=== PATIENT | male | born 1995 | race Caucasian/White ===

== ENCOUNTER 2020-09-30 20:54 | Emergency (ER) | payer OTHER, SELFPAY ==
[2020-09-30 20:55] VITALS: BP 154/79; PULSE 79; RESP 16; TEMP 37.1; O2SAT 99; BMI 34.0
--- NOTE | 2020-09-30 21:54 | XR_ITS ---
EXAMINATION: XR CHEST CLINICAL INFORMATION: Difficulty breathing COMPARISON: None TECHNIQUE: 2 views of the chest were obtained. FINDINGS: Low lung volumes but no focal consolidation or mass. Normal pulmonary vascularity. No pleural effusion or pneumothorax. Normal heart size. Regional skeleton intact. XR/XR chest 2V IMPRESSION: Low lung volumes but no acute pulmonary disease.
--- NOTE | 2020-09-30 21:57 | ED.GENADULT ---
HPI - General Adult General Chief complaint: General Medical Stated complaint: sob Time Seen by Provider: 09/30/20 21:52 Source: patient Mode of arrival: ambulatory Limitations: no limitations History of Present Illness HPI narrative: This is a 24-year-old male came in with multiple complaints. 1. Night sweat for the past 2 years not associated with fever or chills. 2. , breathe from his nose only able to breathe from the mouth. 3. Patient obtained health insurance recently and has not seen PCP patient was supposed to get circumcision and is seeking to get it done. Related Data Allergies Allergy/AdvReac Type Severity Reaction Status Date / Time amoxicillin Allergy Mild Rash Verified 09/30/20 21:54 Review of Systems Review of Systems: All other systems are reviewed and are negative Constitutional: Reports as per HPI and Reports no additional constitutional complaints Eyes: Reports as per HPI and Reports no additional eye complaints Reports system reviewed and no additional complaints, except as documented Cardiovascular: Reports as per HPI and Reports no additional cardiovascular complaints Respiratory: Reports as per HPI and Reports no additional respiratory complaints Gastrointestinal: Reports as per HPI and Reports no additional gastrointestinal complaints Genitourinary: Reports no additional female genitourinary complaints Musculoskeletal: Reports no additional musculoskeletal complaints Skin/Breast: Reports system reviewed and no additional complaints, except as docu Psychiatric: Reports no additional psychiatric complaints Endocrine: Reports no additional endocrine complaints Hematologic/Lymphatic: Reports no additional hematologic/lymphatic complaints Allergic/Immunologic: Reports no additional allergic/immunologic complaints Reports system reviewed and no additional complaints, except as documented and Reports Abnormal speech present [facility] Past Medical History Surgical History H/O adenoidectomy Social History Social History Advance Directives: No Advance Directives Information Provided: No Physical Exam Vital Signs: Vital Signs: Last Vital Signs Temp 98.8 F 09/30/20 20:55 Pulse 56 10/01/20 00:55 Resp 16 10/01/20 00:55 BP 151/77 H 10/01/20 00:55 Pulse Ox 100 10/01/20 00:55 Body Mass Index 34.0 Vital signs have been reviewed as normal and appeared to be correct. Blood pressure on the high side. Heart rate normal. Respiration rate normal. Temperature normal. Oxygen saturation normal. Appearance: Alert. Oriented X3. No acute distress. Head: Normal external exam. Normocephalic. Atraumatic. No Vidales signs noted. No raccoon eyes noted Eyes: PERRLA. EOMI. Conjunctiva and sclera normal. Eyelids normal. ENT: EAC normal. TM's Normal. Pharynx normal. Uvula midline. Moist mucous membranes. No trismus noted. No drooling noted. No muffled voice noted. Neck: Normal inspection. Neck supple. FROM. No adenopathy. Thyroid Normal. No meningeal signs. No neck mass noted. CVS: Normal heart rate and rhythm. Heart sound normal. No murmurs noted. Pulses normal throughout. Respiratory: No respiratory distress. Painless inspiration. Breath sounds normal. No wheezes/rales/rhonchi noted. Chest nontender. No accessory muscle usage noted or decreased air movement noted. Abdomen: Obese, Soft and nontender. Bowel sounds normal in all 4 quadrants. No distention noted. No organomegaly noted. No visible injury noted. Back: No CVA tenderness. Full range of motion noted. Skin: Skin warm and dry. Normal skin color. Normal skin turgor. No rashes/lesions/lacerations noted. Extremities: No lower extremity edema. Extremities exhibit normal range of motion. Extremities nontender. Neuro: Oriented X 3. No motor deficit. No sensory deficit. Reflexes normal. Course Course Course Narrative: Assessment and plan. This is a 24-year-old male came in with multiple complaints. Patient just had his health insurance in the process of looking for PCP. 1. Blood pressure on the high range in the emergency department, need further monitoring of his blood pressure and PCP management of the blood pressure. I discussed with the patient at lengthy the importance of starting exercising and lose weight program. 2. No abdominal pain or abdominal tenderness, elevated lipase, patient do not drink alcohol, unremarkable LFTs. Patient was instructed to drink plenty of fluid and avoid greasy fatty food, patient also was advised to start exercising and lose weight. 3. Patient been complaining of difficulty breathing appear to be due to low exercise tolerance of the patient and body habitus related, patient has unremarkable labs and chest x-ray with normal. Medical Decision Making Lab Data Result diagrams: 09/30/20 22:49 09/30/20 22:49 Labs: Lab Results 09/30/20 09/30/20 09/30/20 Range/Units 22:49 22:49 23:03 WBC 8.9 (4.8-10.8) X10*3/uL RBC 4.93 (4.60-5.80) X10*6/uL Hgb 14.8 (14.0-18.0) g/dl Hct 43.7 (42-52) % MCV 88.6 (80-98) fL MCH 30.0 (27.0-33.0) pg MCHC 33.9 (31.0-36.0) g/dl RDW 11.8 (11.0-16.0) % Plt Count 325 (160-400) X10*3/uL MPV 9.9 (9.4-12.4) fL Immature Gran % (Auto) 0.2 (0.0-0.4) % Neut % (Auto) 64.3 (45-73) % Lymph % (Auto) 24.7 (20-40) % [place] % (Auto) 9.6 (2-11) % Eos % (Auto) 0.9 (0-4) % Baso % (Auto) 0.3 (0-2) % Lymph # (Auto) 2.2 (1.2-4.9) X10*3/uL [place] # (Auto) 0.9 (0.1-1.2) X10*3/uL Eos # (Auto) 0.1 (0.0-0.4) X10*3/uL Baso # (Auto) 0.0 (0.0-0.2) X10*3/uL Abs Immat Gran (auto) 0.02 (0.00-0.03) X10*3/uL Absolute Neuts (auto) 5.7 (2.0-8.3) X10*3/uL Absolute Nucleated RBC 0.000 (0.0-0.012) X10*3/uL Nucleated RBC % (auto) 0.0 (0.0-0.2) /100WBC Sodium 140 (135-145) mmol/L Potassium 4.3 (3.3-5.1) mmol/l Chloride 104 (96-108) mmol/L Carbon Dioxide 29 (22-29) mmol/L Anion Gap 11 L (12-20) BUN 10 (9-16) mg/dL Creatinine 0.85 (0.5-1.4) mg/dL Estim Creat Clear Calc 195.0 Estimated GFR > 60 Random Glucose 101 (60-115) mg/dL Calcium 9.0 (8.4-10.2) mg/dL Total Bilirubin 0.3 (0.0-1.0) mg/dL Direct Bilirubin 0.2 (0.0-0.5) mg/dL AST 26 (5-37) U/L ALT 39 (0-40) U/L Alkaline Phosphatase 68 (39-117) U/L Total Protein 7.1 (6.5-8.0) g/dL Albumin 4.4 (3.5-5.0) g/dL Lipase 201 H (8-78) U/L Urine Color YELLOW Urine Appearance CLEAR Urine pH 6.5 (5.0-8.0) Ur Specific [place] 1.025 (1.005-1.025) Urine Protein NEG (NEG-TRACE) MG/DL Urine Glucose (UA) NEG (NEG) MG/DL Urine Ketones NEG (NEG) MG/DL Urine Blood NEG (NEG) Urine Nitrite NEG (NEG) Ur Leukocyte Esterase NEG (NEG) Imaging Data Chest x-ray: Radiologist's impression: Low lung volume but no acute pulmonary disease. Discharge Plan Discharge Clinical Impression: Hypertension Qualifiers: Hypertension type: unspecified Qualified Code(s): I10 - Essential (primary) hypertension Acute pancreatitis Qualifiers: Pancreatitis type: idiopathic Patient Disposition: Home, Self-Care Instructions: Pancreatitis (ED), Hypertension (ED) Referrals: Claudette Eng MD [Primary Care Provider] - 2 days
--- NOTE | 2020-09-30 22:15 | PC.NURSE ---
This PCT walked PT on O2 monitor, PT oxygen dropped to 91% on room air. RN Nick aware.
[2020-09-30 22:54] LABS: Basophils Percent Auto 0.3 % (0-2); Eosinophils Absolute Auto 0.1 X10*3/uL (0.0-0.4); Eosinophils Percent Auto 0.9 % (0-4); Hematocrit 43.7 % (42-52); Hemoglobin 14.8 g/dl (14.0-18.0); Imm Gran Abs Auto 0.02 X10*3/uL (0.00-0.03); Imm Gran Pct Auto 0.2 % (0.0-0.4); Lymphocytes Absolute Auto 2.2 X10*3/uL (1.2-4.9); Lymphocytes Percent Auto 24.7 % (20-40); MANUAL DIFF FLAG NO; Mean Corpuscular HGB Conc 33.9 g/dl (31.0-36.0); Mean Corpuscular Volume 88.6 fL (80-98); Mean Platelet Volume 9.9 fL (9.4-12.4); Monocytes Absolute Auto 0.9 X10*3/uL (0.1-1.2); Monocytes Percent Auto 9.6 % (2-11); Neutrophils Absolute Auto 5.7 X10*3/uL (2.0-8.3); Neutrophils Percent Auto 64.3 % (45-73); Platelet Count 325 X10*3/uL (160-400); Red Blood Count 4.93 X10*6/uL (4.60-5.80); Red Cell Distribution Width 11.8 % (11.0-16.0); White Blood Count 8.9 X10*3/uL (4.8-10.8)
[2020-09-30 23:09] LABS: Glucose Urine UA NEG (NEG); Leukocyte Esterase Urine NEG (NEG); Nitrite Urine NEG (NEG); PH 6.5 (5.0-8.0); Specific Gravity - Urine 1.025 (1.005-1.025); Urine Blood NEG (NEG); Urine Ketones NEG (NEG); Urine Protein NEG (NEG-TRACE)
[2020-09-30 23:10] LABS: Appearance Urine CLEAR; Color Urine YELLOW
[2020-09-30 23:22] LABS: Alanine Aminotransferase 39 U/L (0-40); Albumin Level 4.4 g/dL (3.5-5.0); Alkaline Phosphatase 68 U/L (39-117); Anion Gap 11 (12-20); Aspartate Amino Transferase 26 U/L (5-37); Bilirubin Direct 0.2 mg/dL (0.0-0.5); Bilirubin Total 0.3 mg/dL (0.0-1.0); Blood Urea Nitrogen 10 mg/dL (9-16); Carbon Dioxide 29 mmol/L (22-29); Chloride 104 mmol/L (96-108); Estimated Glomerular Filt Rate > 60; Glucose Random 101 mg/dL (60-115); Potassium 4.3 mmol/l (3.3-5.1); Sodium 140 mmol/L (135-145); Total Protein 7.1 g/dL (6.5-8.0)
[2020-09-30 23:38] LABS: Lipase 201 U/L (8-78)
[2020-10-01 00:55] VITALS: BP 151/77; PULSE 56; RESP 16; O2SAT 100
== END 2020-10-01 01:44 | disposition home or self-care (01) ==
PROVIDERS: Emergency Provider Emergency Medicine; PCP Pediatrics
DX: K85.00 Idiopathic acute pancreatitis without necrosis or infection (principal); I10 Essential (primary) hypertension
CPT/HCPCS: 36415; 71046; 80048; 80076; 81003; 83690; 85025; 99283

== ENCOUNTER 2020-11-02 16:19 | Emergency (ER) | payer OTHER, SELFPAY ==
--- NOTE | ~2020-11-02 | CT_ITS ---
EXAMINATION: CT HEAD WITHOUT CONTRAST CLINICAL INFORMATION: Headache. COMPARISON: No relevant prior imaging. TECHNIQUE: Contiguous axial imaging was performed from the skull base to vertex without intravenous administration of contrast. This CT examination was performed using dose optimization techniques as appropriate, variously including the following: *Automated exposure control *Adjustment of mA and/or kV according to patient size (this includes techniques or standardized protocols for targeted exams where dose is matched to indication/reason for exam; i.e. extremities or head) *Use of iterative reconstruction technique DLP: 842 mGy-cm FINDINGS: There is no acute intracranial hemorrhage or abnormal extra-axial collection. No intracranial mass effect or midline shift. Lateral and third ventricles are normal. No hydrocephalus. Wong-white matter differentiation is preserved and there is no evidence of acute territorial infarct. The calvarium and skull base are intact. Mastoid air cells and middle ear cavities are well aerated. No active paranasal sinus disease. CT/CT head/brain wo con IMPRESSION: Normal CT scan of the head.
[2020-11-02 16:45] VITALS: BP 147/67; PULSE 67; RESP 16; TEMP 36.6; O2SAT 99; BMI 37.7
--- NOTE | 2020-11-02 19:08 | ED_ITS ---
HPI - General Adult General Chief complaint: General Medical Stated complaint: ?Uti Time Seen by Provider: 11/02/20 18:42 History of Present Illness HPI narrative: Patient with multiple complaints First complaint is chronic mild headache that he feels is becoming more frequent and worse, pattern of headache is unchanged, there is no abrupt onset headache he has had no fever chills no weakness Second complaint is at times he feels like his heart is racing but he denies chest pain he has no palpitations now he has no shortness of breath, these are episodic and not continuous episodes of palpitation He is concerned that he is urinating frequently and is concerned he might have a urinary tract infection although he denies burning with urination He is concerned on his last visit that he had an elevated lipase although he has no abdominal pain or vomiting and is eating normally Related Data Previous Rx's Medication Instructions Recorded ibuprofen 600 mg PO Q6H PRN #20 tab 11/02/20 lorazepam [Ativan] 1 mg PO TID PRN #10 tab 11/02/20 Allergies Allergy/AdvReac Type Severity Reaction Status Date / Time amoxicillin Allergy Mild Rash Verified 09/30/20 21:54 Review of Systems Review of Systems: Positive for intermittent palpitations, frequent daily headache, frequent urination Negatives are no fever no chills no dizziness no confusion no weakness no numbness no sore throat no vision changes, there is no shortness of breath or chest pain, there is no abdominal pain no nausea no vomiting there is no burning with urination, there is no skin rash PMFSH Past Medical History Source: nursing notes reviewed Surgical History H/O adenoidectomy Social History Social History Advance Directives: No Advance Directives Information Provided: Yes Physical Exam Vital Signs: Vital Signs: Last Vital Signs Temp 97.8 F 11/02/20 16:45 Pulse 65 11/02/20 20:05 Resp 18 11/02/20 20:05 BP 143/62 H 11/02/20 20:05 Pulse Ox 98 11/02/20 20:05 Body Mass Index 37.7 General appearance is comfortable cooperative no acute distress A&O x3 The head is normocephalic atraumatic pupils are equal round reactive to light extraocular motions are intact The pharynx is normal with help well hydrated normal mucous membranes The neck is supple The chest is clear to auscultation with full symmetric equal breath sounds The heart rate and rhythm regular no murmur The abdomen soft nontender Genital exam, the patient cannot retract foreskin but there is no testicular swelling there is no redness no discharge, skin is normal in appearance Extremities no calf tenderness or swelling no edema Skin no rashes Neuro no focal deficits Course Course Course Narrative: For the headache a CT was done that did not show any mass or any abnormality and was read as normal EKG was done for the episodes of palpitations, no palpitations now, EKG was read as sinus bradycardia with a rate of 55 with no acute ischemic changes, NE interval was 136 QRS duration was 92 QTC was 394, no acute ST changes For frequent urination urinalysis was done and normal, patient has also already made an appointment with the urologist for evaluation for possible circumcision for the phimosis, with no sign of balanitis now Repeat of his abnormal lipase test was normal at 18 Fingerstick was 89, discussion with patient about symptoms possibly be removed related to anxiety and he would like to try Ativan if he gets his episodes of palpitations, he will use Motrin for his headaches, he will follow with urologist and we will call him if there are any positive results on his STD test Medical Decision Making Lab Data Labs: Lab Results 11/02/20 11/02/20 Range/Units 20:02 20:07 Lipase 18 (8-78) U/L Urine Color YELLOW Urine Appearance CLEAR Urine pH 5.5 (5.0-8.0) Ur Specific [place] >= 1.030 H (1.005-1.025) Urine Protein NEG (NEG-TRACE) MG/DL Urine Glucose (UA) NEG (NEG) MG/DL Urine Ketones NEG (NEG) MG/DL Urine Blood NEG (NEG) Urine Nitrite NEG (NEG) Ur Leukocyte Esterase NEG (NEG) Discharge Plan Discharge Clinical Impression: Palpitations, Phimosis, Anxiety Chronic headache Qualifiers: Headache type: unspecified Intractability: not intractable Qualified Code(s): R51.9 - Headache, unspecified Patient Disposition: Home, Self-Care Additional Instructions: Your head CT was normal, for regular headaches follow with primary care doctor for further evaluation and use Tylenol or Motrin as needed There was no sign of any cancer or any dangerous finding in the brain, CT was normal For phimosis follow with urologist as scheduled for possible circumcision Urinalysis did not show any urinary tract infection Sugar test did not show any diabetes For palpitations and possible anxiety follow with primary doctor for further evaluation of palpitations and discussion of whether preventative medicines for anxiety are warranted If you feel your having an anxiety attack you can try Ativan which is often very helpful for anxiety and makes people feel, it also can make you drowsy so no driving for 6 hours after using it Ativan is for occasional use for anxiety attack but does not treat or prevent recurrence of anxiety attacks We will call you if the test for sexually transmitted disease comes positive Return any time any worse condition or any concerns Prescriptions: New lorazepam [Ativan] 1 mg tablet 1 mg PO TID PRN (Reason: anxiety) Qty: 10 RF: 0 ibuprofen 600 mg tablet 600 mg PO Q6H PRN (Reason: pain) Qty: 20 RF: 0 Stand Alone Forms: Work/School Release
--- NOTE | 2020-11-02 19:09 | ECG_ITS ---
Test Reason : WEAKNESS Blood Pressure : / mmHG Vent. Rate : 055 BPM Atrial Rate : 055 BPM P-R Int : 136 ms QRS Dur : 092 ms QT Int : 394 ms P-R-T Axes : 025 020 030 degrees QTc Int : 376 ms Sinus bradycardia Otherwise normal ECG No previous ECGs available Referred By: Tucker Olivares Electronically Signed By:ELIEZER CHRISTIAN MD
[2020-11-02 20:05] VITALS: BP 143/62; PULSE 65; RESP 18; O2SAT 98
[2020-11-02 20:13] LABS: Glucose Urine UA NEG (NEG); Leukocyte Esterase Urine NEG (NEG); Nitrite Urine NEG (NEG); PH 5.5 (5.0-8.0); Specific Gravity - Urine >= 1.030 (1.005-1.025); Urine Blood NEG (NEG); Urine Ketones NEG (NEG); Urine Protein NEG (NEG-TRACE)
[2020-11-02 20:15] LABS: Appearance Urine CLEAR; Color Urine YELLOW
[2020-11-02 20:43] LABS: Lipase 18 U/L (8-78)
[2020-11-02 21:01] LABS: Glucose, Whole Blood 89 mg/dL (60-115)
[2020-11-04 11:32] LABS: C. trachomatis RNA TMA NOT DETECTED (NOT DETECTED); N. gonorrhoeae RNA TMA NOT DETECTED (NOT DETECTED)
== END 2020-11-02 21:22 | disposition home or self-care (01) ==
PROVIDERS: Physician Assistant Medical; Emergency Provider Emergency Medicine
DX: R00.2 Palpitations (principal); N47.1 Phimosis; F41.1 Generalized anxiety disorder; F43.0 Acute stress reaction; R51.9 Headache, unspecified; R35.0 Frequency of micturition; Z79.899 Other long term (current) drug therapy
CPT/HCPCS: 36415; 70450; 81003; 82947; 83690; 87491; 87591; 93005; 96361; 96374; 99284

== ENCOUNTER 2021-07-31 14:37 | Emergency (ER) | payer OTHER, SELFPAY ==
--- NOTE | ~2021-07-31 | XR_ITS ---
EXAMINATION: XR CHEST CLINICAL INFORMATION: Cough. COVID positive. COMPARISON: Chest done on 09/30/2020. TECHNIQUE: Frontal view of the chest was obtained. FINDINGS: No significant abnormality is noted involving the heart, lungs, mediastinum, bony thorax or soft tissues. No significant change. XR/XR chest 1V IMPRESSION: Unremarkable examination. No significant change since 09/30/2020.
[2021-07-31 15:19] VITALS: BP 140/96; PULSE 80; RESP 18; TEMP 36.6; O2SAT 99; BMI 36.7
--- NOTE | 2021-07-31 15:52 | ED_ITS ---
HPI - URI/Sore Throat General Chief Complaint: Upper Respiratory Symptoms Stated Complaint: +covid, cough Time Seen by Provider: 07/31/21 15:44 Source: patient Mode of arrival: ambulatory Limitations: no limitations History of Present Illness HPI Narrative: 25-year-old male presenting to the ED with complaints of worsening productive cough over the past 3-4 days. Reports that he was diagnosed with COVID yesterday and he started having symptoms last Friday but his symptoms were body aches, abdominal discomfort and diarrhea which already resolved now he mainly has productive cough. Denies any fevers, chills, neck pain/stiffness, chest pain or shortness of breath, chest tightness, dyspnea on exertion, orthopnea, palpitations, wheezing, abdominal pain, nausea/vomiting/diarrhea or any rashes or any other symptoms complaints or concerns at this time. MD elicited complaint: cough, rhinorrhea and nasal congestion Pertinent past history: other (Was diagnosed with COVID yesterday) Onset (ago): day(s) Consistency: constant and progressively worsening Severity: moderate Description of mucous: clear, watery and yellow Able to tolerate fluids by mouth: Yes Exacerbating factors: nothing Relieving factors: nothing Context: other (Positive for COVID since yesterday started having symptoms last Friday) Associated symptoms: rhinorrhea and nasal congestion Treatments prior to arrival: none Related Data Previous Rx's Medication Instructions Recorded ibuprofen 600 mg tablet 600 mg PO Q6H PRN #20 tab 11/02/20 lorazepam 1 mg tablet (Ativan) 1 mg PO TID PRN #10 tab 11/02/20 azithromycin 250 mg tablet See Rx Instructions .ROUTE 07/31/21 .COMPLEX #6 tab codeine 10 mg-guaifenesin 100 mg/5 5 ml PO Q6H PRN #120 ml 07/31/21 mL oral liquid (Guaifenesin AC) Allergies Allergy/AdvReac Type Severity Reaction Status Date / Time amoxicillin Allergy Mild Rash Verified 09/30/20 21:54 Review of Systems Review of Systems: Constitutional : No Weight loss, No Fever, No Chills, No Night Sweats, + Fatigue, + Malaise ENT/Mouth : No Hearing loss, No Ear Pain, No Nasal Congestion, No Sinus Pain, + Hoarseness, No sore throat, + Rhinorrhea, No Swallowing Difficulty Eyes: No Eye Pain, No Swelling, No Redness, No Foreign Body, No Discharge, No Vision Changes Cardiovascular : No Chest Pain, No SOB, No Dyspnea on Exertion, No Orthopnea, No Edema, No Palpitations Respiratory : + Cough, + Sputum, No Wheezing, No Smoke Exposure, No Dyspnea Gastrointestinal : No Nausea, No Vomiting, No Diarrhea, No Constipation, No abdominal Pain, No Hematochezia, No Melena Genitourinary : no irregular bleeding, No Dysuria, No Urinary Frequency, No Hematuria, No Urinary Incontinence, No Urgency, No Flank Pain, No Urinary Flow Changes, No Hesitancy Musculoskeletal : No joint pain, No Myalgias, No Joint Swelling Skin : No Skin Lesions, No rash Neuro : No Weakness, No Numbness, No Paresthesias, No Loss of Consciousness, No Dizziness, No Headache Psych : No Anxiety/Panic, No Depression, No SI/HI/AH/VH, No Social Issues, Heme/Lymph: No Bruising, No Bleeding,No Lymphadenopathy Endocrine : No Polyuria, No Polydipsia, No Temperature Intolerance Yes all other systems are reviewed and are negative [facility] Past Medical History Attestation statement: The following information was validated with the patient. Surgical History H/O adenoidectomy Social History Social History Alcohol intake: never Advance Directives: No Advance Directives Information Provided: Yes Physical Exam Vital Signs: Vital Signs: Last Vital Signs Temp 98 F 07/31/21 15:19 Pulse 80 07/31/21 15:19 Resp 18 07/31/21 15:19 BP 140/96 H 07/31/21 15:19 Pulse Ox 99 07/31/21 15:19 Body Mass Index 36.7 vital signs have been reviewed as normal and appeared to be correct. Blood pressure hypertensive at 140/96 Heart rate normal. Respiration rate normal. Temperature normal. Oxygen saturation normal. Appearance: Alert. Oriented X3. No acute distress. Head: Normal external exam. Normocephalic. Atraumatic. Eyes: PERRLA. EOMI. Conjunctiva and sclera normal. Eyelids normal. ENT: EAC normal. TM's Normal. Pharynx normal. Uvula midline. Moist mucous membranes. No trismus noted. No drooling noted. No muffled voice noted. Neck: Normal inspection. Neck supple. FROM. No adenopathy. Thyroid Normal. No meningeal signs. No neck mass noted. CVS: Normal heart rate and rhythm. Heart sound normal. Pulses normal throughout. No murmurs/rales/gallops. Respiratory: No respiratory distress. Painless inspiration. Breath sounds normal. No wheezes/rales/rhonchi noted. Chest nontender. No accessory muscle usage noted or decreased air movement noted. Abdomen: Soft and nontender. Bowel sounds normal in all 4 quadrants. No distention noted. No organomegaly noted. No visible injury noted. Back: Full range of motion noted. Skin: Skin warm and dry. Normal skin color. Normal skin turgor. No rashes/l esions/lacerations noted. Extremities: No lower extremity edema. No calf tenderness noted. Extremities exhibit normal range of motion. Extremities nontender. Neuro: Oriented X 3. No motor deficit. No sensory deficit. Reflexes normal. Normal steady gait. No focal neuro deficits noted. Vascular: + radial pulses/+ 2 distal pedal pulses/+2 dorsalis pedis b/l. Normal cap refill. No cyanosis noted to upper extremity nails and lower extremity toes nails. Course Course Course Narrative: 25-year-old male presenting to the ED with complaints of worsening productive cough over the past 3-4 days. Reports that he was diagnosed with COVID yesterday and he started having symptoms last Friday but his symptoms were body aches, abdominal discomfort and diarrhea which already resolved now he mainly has productive cough. Denies any fevers, chills, neck pain/stiffness, chest pain or shortness of breath, chest tightness, dyspnea on exertion, orthopnea, palpitations, wheezing, abdominal pain, nausea/vomiting/diarrhea or any rashes or any other symptoms complaints or concerns at this time. Chest x-ray obtained and negative for pneumonia or any other acute processes. Will DC home with symptomatic treatment instructions to call [facility] monoclonal antibody clinic for possible appointment for positive COVID and to return if any new or worsening symptoms to self isolate and to follow up with primary care provider. Patient understands agrees with this plan. MDM - URI/Sore Throat Medical Records Attestation: I reviewed the patient's medical records. Imaging Data Chest x-ray: Attestation: I personally reviewed and interpreted this imaging study as follows: Radiologist's impression: FINDINGS: No significant abnormality is noted involving the heart, lungs, mediastinum, bony thorax or soft tissues. No significant change. XR/XR chest 1V IMPRESSION: Unremarkable examination. No significant change since 09/30/2020. Discharge Plan Discharge Clinical Impression: COVID-19 Patient Disposition: Home, Self-Care Instructions: COVID-19 (Coronavirus Disease 2019) (ED) Additional Instructions: Call [facility] monoclonal antibody therapy clinic for a possible appointment for COVID symptoms. Return if any new or worsening symptoms and follow up with your primary care provider. Prescriptions: New azithromycin 250 mg tablet See Rx Instructions .ROUTE .COMPLEX Qty: 6 RF: 0 codeine-guaifenesin [Guaifenesin AC] 10-100 mg/5 mL liquid 5 ml PO Q6H PRN (Reason: cold symptoms) Qty: 120 RF: 0 No Action lorazepam [Ativan] 1 mg tablet 1 mg PO TID PRN (Reason: anxiety) Qty: 10 RF: 0 ibuprofen 600 mg tablet 600 mg PO Q6H PRN (Reason: pain) Qty: 20 RF: 0 Referrals: Physician,None [Primary Care Provider] - 2 days (your pcp) Stand Alone Forms: Work/School Release Print Language: Italian
== END 2021-07-31 16:33 | disposition home or self-care (01) ==
PROVIDERS: Emergency Provider Emergency Medicine
DX: U07.1 COVID-19 (principal)
CPT/HCPCS: 71045; 99283

== ENCOUNTER 2022-01-22 21:10 | Emergency (ER) | payer OTHER, SELFPAY ==
[2022-01-22 21:13] VITALS: BP 125/75; PULSE 126; RESP 20; TEMP 37.7; O2SAT 96; BMI 37.7
--- NOTE | 2022-01-22 21:29 | ED_ITS ---
HPI - URI/Sore Throat General Chief Complaint: Upper Respiratory Symptoms Stated Complaint: flu like symptoms Time Seen by Provider: 01/22/22 21:16 Source: patient Mode of arrival: ambulatory Limitations: no limitations History of Present Illness HPI Narrative: 26 y/o male with history of COVID-19 in July 2021 who presents to the ER complaining of 2 days of mild dry cough and new onset of nausea, diarrhea, di ffuse body aches and congestion that started today when he was at work. He reports his cough is started couple days ago was very mild and nonproductive. Over the last 24 hours he has developed increased nausea, has had several episodes of nonbloody loose stools and developed diffuse body aches and pains in his muscles and joints. He has also had headaches, chest congestion and nasal congestion. He also reports a mild sore throat. He had a coughing episode prior to coming in that resulted in 1 episode of vomiting. No abdominal pain or further vomiting. No known sick contacts. He is not vaccinated for COVID or the flu. MD elicited complaint: fever, cough, sore throat and nasal congestion Onset (ago): day(s) (2) Consistency: progressively worsening Severity: moderate Description of mucous: clear and watery Able to tolerate fluids by mouth: Yes Exacerbating factors: nothing Relieving factors: nothing Associated symptoms: fever, myalgias, headache, rhinorrhea, nasal congestion, sore throat, cough, nausea, vomiting and diarrhea Treatments prior to arrival: none Related Data Previous Rx's Medication Instructions Recorded ibuprofen 600 mg tablet 600 mg PO Q6H PRN #20 tab 11/02/20 lorazepam 1 mg tablet (Ativan) 1 mg PO TID PRN #10 tab 11/02/20 azithromycin 250 mg tablet See Rx Instructions .ROUTE 07/31/21 .COMPLEX #6 tab codeine 10 mg-guaifenesin 100 mg/5 5 ml PO Q6H PRN #120 ml 07/31/21 mL oral liquid (Guaifenesin AC) oseltamivir 75 mg capsule (Tamiflu) 75 mg PO BID 5 Days #10 cap 01/22/22 Allergies Allergy/AdvReac Type Severity Reaction Status Date / Time amoxicillin Allergy Mild Rash Verified 01/22/22 21:13 red dye Allergy Mild Itching Verified 01/22/22 21:13 Review of Systems Review of Systems: Constitutional: + Fever, No Chills ENT/Mouth: + sore throat, + Rhinorrhea, No Swallowing Difficulty Eyes: No Eye Pain, No Swelling, No Redness Cardiovascular: No Chest Pain, No SOB Respiratory: + Cough, + Sputum, No Wheezing, No dyspnea Gastrointestinal: + Nausea, + Vomiting, + Diarrhea, No abdominal Pain, No Hematochezia, No Melena Genitourinary: No Dysuria, No Urinary Frequency, No Hematuria Musculoskeletal: + joint pain, + Myalgias Skin: No Skin Lesions, No rash Neuro: No Weakness, No Numbness, No Dizziness, + Headache Heme/Lymph: No Bruising, No Lymphadenopathy PMFSH Past Medical History Surgical History H/O adenoidectomy Social History Social History Alcohol intake: never Advance Directives: No Advance Directives Information Provided: No Physical Exam Vital Signs: Vital Signs: Last Vital Signs Temp 100 F 01/22/22 21:13 Pulse 126 H 01/22/22 21:13 Resp 20 01/22/22 21:13 BP 125/75 01/22/22 21:13 Pulse Ox 96 01/22/22 21:13 BMI result Body Mass Index 37.7 Appearance: Alert. Oriented X3. No acute distress. Eyes: Pupils equal, round and reactive to light. ENT: Pharynx normal. Neck: Normal inspection. Neck supple. CVS: Tachycardic, regular rhythm. HR 120 Respiratory: No respiratory distress. Breath sounds normal. Abdomen: Obese, Soft and nontender. +BS x4 Skin: Skin warm and dry. Normal skin color. Normal skin turgor. No rashes. Extremities: Normal inspection x4 Neuro: Oriented X 3. Grossly normal, nonfocal Course Course Course Narrative: 26-year-old healthy male presenting to the ER with [address] mild cough and new onset of nausea, diarrhea, increased body aches, headache and chest congestion that started today while at work. He has low grade fever of 100 and HR 126. Otherwise exam is benign any is nontoxic appearing. Lungs are nice and clear. COVID and flu swabs have been sent. Reevaluation(s) Reevaluation #1: Patient is influenza A positive. Will start on Tamiflu given his symptoms started within the last 48 hours. Stable for discharge home with supportive care and oral antiviral. Patient agrees with plan. Note provided per request. MDM - URI/Sore Throat Lab Data Labs: Lab Results 01/22/22 01/22/22 Range/Units 21:17 21:17 COVID-19 ([facility]) Negative (Negative) COVID-19 Clin Com See Note Influenza Type A ([facility]) Positive A (Negative) Influenza Type B ([facility]) Negative (Negative) Influenza A & B Note See Note Critical Care Time Critical Care Time Critical Care Time: No Discharge Plan Discharge Clinical Impression: Influenza Patient Disposition: Home, Self-Care Instructions: Influenza (DC) Additional Instructions: Tested positive for influenza A. Rest. Drink plenty of fluids. Take the prescribed antiviral to help shorten the duration of your symptoms. Start taking as soon as possible. Do not go out in public for the next 3-5 days or until your symptoms are improved. Take over the counter cold/flu medications as needed for your symptoms. Recommend [id number] Pepto-Bismol or Imodium as needed for upset stomach and diarrhea. Take Tylenol and/or Motrin as needed for fevers and body aches. Follow up with your doctor this week. If you develop new or worsening symptoms call 911 or come back to the ER for further evaluation. Prescriptions: New oseltamivir [Tamiflu] 75 mg capsule 75 mg PO BID 5 Days Qty: 10 0RF No Action lorazepam [Ativan] 1 mg tablet 1 mg PO TID PRN (Reason: anxiety) Qty: 10 0RF ibuprofen 600 mg tablet 600 mg PO Q6H PRN (Reason: pain) Qty: 20 0RF azithromycin 250 mg tablet See Rx Instructions .ROUTE .COMPLEX Qty: 6 0RF Rx Instructions: take 500 mg today (day 1), then 250 mg for 4 days (days 2-5) codeine-guaifenesin [Guaifenesin AC] 10-100 mg/5 mL liquid 5 ml PO Q6H PRN (Reason: cold symptoms) Qty: 120 0RF Stand Alone Forms: Work/School Release Discharge Date/Time: 01/22/22 22:09
[2022-01-22 21:47] LABS: COVID-19 Test Negative (Negative); IDNOW Serial# 08D9AD1C; Influenza A Positive (Negative); Influenza B2 Negative (Negative)
== END 2022-01-22 22:09 | disposition home or self-care (01) ==
PROVIDERS: Emergency Provider Internal Medicine
DX: J10.1 Influenza due to other identified influenza virus with other respiratory manifestations (principal); Z20.822 Contact with and (suspected) exposure to COVID-19; Z79.899 Other long term (current) drug therapy
CPT/HCPCS: 87502; 87635; 99283

== ENCOUNTER 2022-10-31 23:35 | Emergency (ER) | payer OTHER, SELFPAY ==
--- NOTE | 2022-10-31 | ECG_ITS ---
Test Reason : palpitations Blood Pressure : / mmHG Vent. Rate : 063 BPM Atrial Rate : 063 BPM P-R Int : 138 ms QRS Dur : 092 ms QT Int : 394 ms P-R-T Axes : 029 015 029 degrees QTc Int : 403 ms Normal sinus rhythm with sinus arrhythmia Normal ECG When compared with ECG of 02-NOV-2020 19:14, No significant change was found Referred By: Generic ED Physician Electronically Signed By:ELIEZER CHRISTIAN MD
[2022-10-31 23:39] VITALS: BP 151/99; PULSE 69; RESP 20; TEMP 36.6; O2SAT 100; BMI 38.7
[2022-11-01 00:13] LABS: MANUAL DIFF FLAG NO
[2022-11-01 00:15] LABS: Basophils Percent Auto 0.4 % (0-2); Eosinophils Absolute Auto 0.1 X10*3/uL (0.0-0.4); Eosinophils Percent Auto 1.3 % (0-4); Hematocrit 41.8 % (42.0-52.0); Hemoglobin 14.1 g/dl (14.0-18.0); Imm Gran Abs Auto 0.02 X10*3/uL (0.00-0.03); Imm Gran Pct Auto 0.2 % (0.0-0.4); Lymphocytes Absolute Auto 2.8 X10*3/uL (1.2-4.9); Lymphocytes Percent Auto 33.5 % (20-40); Mean Corpuscular HGB Conc 33.7 g/dl (31.0-36.0); Mean Corpuscular Hemoglobin 29.7 pg (27.0-33.0); Mean Platelet Volume 9.8 fL (9.4-12.4); Monocytes Absolute Auto 0.7 X10*3/uL (0.1-1.2); Monocytes Percent Auto 8.4 % (2-11); Neutrophils Absolute Auto 4.7 x10*3/uL (2.0-8.3); Neutrophils Percent Auto 56.2 % (45-73); Platelet Count 285 X10*3/uL (160-400); Red Blood Count 4.75 X10*6/uL (4.60-5.80); Red Cell Distribution Width 12.1 % (11.0-16.0); White Blood Count 8.4 X10*3/uL (4.8-10.8)
[2022-11-01 00:29] LABS: Anion Gap 15 (12-20); Blood Urea Nitrogen 10 mg/dL (9-16); Calcium 9.4 mg/dL (8.4-10.2); Carbon Dioxide 28 mmol/L (22-29); Chloride 103 mmol/L (96-108); Creatinine Clr Calc Pharmacy 188.5; Estimated Glomerular Filt Rate > 60; Glucose Random 96 mg/dL (60-115); Potassium 4.2 mmol/L (3.3-5.1); Sodium 142 mmol/L (135-145)
--- NOTE | 2022-11-01 00:37 | ED_ITS ---
HPI - Chest Pain General Chief Complaint: Chest Pain Stated Complaint: Palpitations Time Seen by Provider: 11/01/22 00:37 Source: patient Mode of arrival: ambulatory Limitations: no limitations History of Present Illness HPI narrative: Patient no significant past medical history? UZIEL not been diagnosed, increased anxiety been having palpitation and mild chest pain while patient trying to sleep for last 4 days during daytime patient does not have any chest pain or palpitation patient is sleeping okay otherwise has some anxiety but does not feel very depressed or anxious Related Data Previous Rx's Medication Instructions Recorded ibuprofen 600 mg tablet 600 mg PO Q6H PRN pain #20 tabs 11/02/20 lorazepam 1 mg tablet (Ativan) 1 mg PO TID PRN anxiety #10 tabs 11/02/20 azithromycin 250 mg tablet See Rx Instructions PO .COMPLEX #6 07/31/21 tabs codeine 10 mg-guaifenesin 100 mg/5 5 ml PO Q6H PRN cold symptoms #120 07/31/21 mL oral liquid (Guaifenesin AC) mL oseltamivir 75 mg capsule (Tamiflu) 75 mg PO BID 5 days #10 caps 01/22/22 Allergies Allergy/AdvReac Type Severity Reaction Status Date / Time amoxicillin Allergy Mild Rash Verified 10/31/22 23:41 red dye Allergy Mild Itching Verified 10/31/22 23:41 Review of Systems Review of Systems: Yes all other systems are reviewed and are negative [facility] Past Medical History Surgical History H/O adenoidectomy Social History Social History Alcohol intake: never Advance Directives: No Advance Directives Information Provided: No Physical Exam Vital Signs: Vital Signs: Last Vital Signs Temp 97.8 F 10/31/22 23:39 Pulse 69 10/31/22 23:39 Resp 20 10/31/22 23:39 BP 151/99 H 10/31/22 23:39 Pulse Ox 100 10/31/22 23:39 O2 Del Method 10/31/22 23:39 BMI result Body Mass Index 38.7 Appearance: Alert. Oriented X3. No acute distress. Anxious Eyes: PERRLA, No Nystagmus ENT: Pharynx normal. Oral Mucosa moist Neck: Normal inspection. Neck supple. CVS: Normal heart rate and rhythm. Pulses normal. Respiratory: No respiratory distress. Equal air entry bilateral, no wheezing/rales/rhonchi Abdomen: Soft and nontender. Bowel sounds are present, no mass palpable, no CVA tenderness Skin: Skin warm and dry. Normal skin color. Normal skin turgor. Extremities: No lower extremity edema. No calf tenderness Neuro: Oriented X 3. No motor deficit. Medical Decision Making Medical Decision Making [facility] Narrative: Atypical chest pain heart score of 0, No palpitation episode noticed during stay in the ER patient's symptoms likely from anxiety does not want any medication possible patient has UZIEL advised to follow-up with hand specialist Lab Data [facility] Lab Attestation statement: I reviewed the patient's lab results. 11/01/22 00:09 11/01/22 00:09 Labs: Lab Results 11/01/22 11/01/22 11/01/22 Range/Units 00:09 00:09 00:09 WBC 8.4 (4.8-10.8) X10*3/uL RBC 4.75 (4.60-5.80) X10*6/uL Hgb 14.1 (14.0-18.0) g/dl Hct 41.8 L (42.0-52.0) % MCV 88.0 (80.0-98.0) fL MCH 29.7 (27.0-33.0) pg MCHC 33.7 (31.0-36.0) g/dl RDW 12.1 (11.0-16.0) % Plt Count 285 (160-400) X10*3/uL MPV 9.8 (9.4-12.4) fL Immature Gran % (Auto) 0.2 (0.0-0.4) % Neut % (Auto) 56.2 (45-73) % Lymph % (Auto) 33.5 (20-40) % [place] % (Auto) 8.4 (2-11) % Eos % (Auto) 1.3 (0-4) % Baso % (Auto) 0.4 (0-2) % Lymph # (Auto) 2.8 (1.2-4.9) X10*3/uL [place] # (Auto) 0.7 (0.1-1.2) X10*3/uL Eos # (Auto) 0.1 (0.0-0.4) X10*3/uL Baso # (Auto) 0.0 (0.0-0.2) X10*3/uL Abs Immat Gran (auto) 0.02 (0.00-0.03) X10*3/uL Absolute Neuts (auto) 4.7 (2.0-8.3) x10*3/uL Absolute Nucleated RBC 0.000 (0.0-0.012) X10*3/uL Nucleated RBC % (auto) 0.0 (0.0-0.2) /100WBC Sodium 142 (135-145) mmol/L Potassium 4.2 (3.3-5.1) mmol/L Chloride 103 (96-108) mmol/L Carbon Dioxide 28 (22-29) mmol/L Anion Gap 15 (12-20) BUN 10 (9-16) mg/dL Creatinine 0.89 (0.5-1.4) mg/dL Estim Creat Clear Calc 188.5 Estimated GFR > 60 Random Glucose 96 (60-115) mg/dL Calcium 9.4 (8.4-10.2) mg/dL Troponin I High Sens < 3.5 (<3.5-35.0) ng/L Independent Interpretation I performed an independent interpretation of an: EKG Interpretation: Normal sinus rhythm heart rate 63 beats per minute normal interval normal axis normal EKG Discharge Plan Discharge Clinical Impression: Atypical chest pain, Heart palpitations Patient Disposition: Home, Self-Care Instructions: Heart Palpitations (ED), Noncardiac Chest Pain (ED) Additional Instructions: Take anxiety medications for severe anxiety as needed Follow-up with lung specialist for sleep studies Take melatonin for sleep Prescriptions: No Action lorazepam [Ativan] 1 mg tablet 1 mg PO TID PRN (Reason: anxiety) Qty: 10 0RF ibuprofen 600 mg tablet 600 mg PO Q6H PRN (Reason: pain) Qty: 20 0RF oseltamivir [Tamiflu] 75 mg capsule 75 mg PO BID 5 Days Qty: 10 0RF azithromycin 250 mg tablet See Rx Instructions .ROUTE .COMPLEX Qty: 6 0RF Rx Instructions: take 500 mg today (day 1), then 250 mg for 4 days (days 2-5) codeine-guaifenesin [Guaifenesin AC] 10-100 mg/5 mL liquid 5 ml PO Q6H PRN (Reason: cold symptoms) Qty: 120 0RF Referrals: Phillip Robertson MD [Physician] - 1 week Interventions: ED Discharge Assessment Last Done: 11/01/22 00:57 Discharge Date/Time: 11/01/22 00:58
[2022-11-01 00:40] LABS: Troponin-I High Sensitivity < 3.5 ng/L (<3.5-35.0)
== END 2022-11-01 00:58 | disposition home or self-care (01) ==
PROVIDERS: Emergency Provider Internal Medicine
DX: R07.89 Other chest pain (principal); R00.2 Palpitations; Z79.899 Other long term (current) drug therapy
CPT/HCPCS: 36415; 80048; 84484; 85025; 93005; 99283

== ENCOUNTER 2022-11-26 20:20 | Emergency (ER) | payer OTHER, SELFPAY ==
--- NOTE | 2022-11-26 20:29 | PC.NURSE ---
Called to ez at [phone]-pt in [place]
[2022-11-26 20:36] VITALS: BP 151/75; PULSE 100; RESP 18; TEMP 37.3; O2SAT 97; BMI 36.3
--- NOTE | 2022-11-26 20:41 | ED.NAVMDI ---
HPI - Nausea/Vomiting/Diarrhea General Chief complaint: Nausea/Vomiting/Diarrhea <Remedios Ferrari CNP - Last Filed: 11/26/22 20:43> Stated complaint: Diarrhea/Dizziness <Remedios Ferrari CNP - Last Filed: 11/26/22 20:43> Time Seen by Provider: 11/26/22 22:39 <Remedios Ferrari CNP - Last Filed: 11/26/22 20:43> Source: patient <Mal Gonzalez MD - Last Filed: 11/27/22 05:08> Mode of arrival: ambulatory <Mal Gonzalez MD - Last Filed: 11/27/22 05:08> Limitations: no limitations <Mal Gonzalez MD - Last Filed: 11/27/22 05:08> History of Present Illness HPI Narrative: Patient had seafood 2 days ago since then been vomiting diarrhea patient's girlfriend also had the same food but has no symptoms. Patient does have watery stool more than 10 times in last 12 hours and same number of vomiting with diffuse abdominal cramps no fever no chills no alcohol use <Mal Gonzalez MD - Last Filed: 11/27/22 05:08> Related Data Home medications: Previous Rx's Medication Instructions Recorded loperamide 2 mg tablet (Imodium 2 mg PO Q6H PRN loose stool #14 11/27/22 A-D) tabs ondansetron 4 mg disintegrating 4 mg PO Q6-8H PRN nausea and 11/27/22 tablet vomiting #10 tabs <Remedios Ferrari CNP - Last Filed: 11/26/22 20:43> Allergies/Adverse reactions: Allergies Allergy/AdvReac Type Severity Reaction Status Date / Time amoxicillin Allergy Mild Rash Verified 11/26/22 20:36 red dye Allergy Mild Itching Verified 11/26/22 20:36 <Remedios Ferrari CNP - Last Filed: 11/26/22 20:43> Review of Systems Review of Systems: Constitutional : No Weight loss, No Fever, No Chills ENT/Mouth : No sore throat, No Rhinorrhea Eyes: No Eye Pain, No Swelling Cardiovascular : No Chest Pain, no palpitations Respiratory : No Cough, No Sputum, no shortness of breath Gastrointestinal : +Nausea, + Vomiting, + Diarrhea, + abdominal Pain, no black stools Genitourinary : No Dysuria, No Urinary Frequency Musculoskeletal : No joint pain, No Myalgias, No Joint Swelling Skin : No Skin Lesions, No rash Neuro : No Weakness, No Numbness, No Dizziness, No Headache Psych : No Anxiety/Panic, No Depression Heme/Lymph: No Bruising, No Lymphadenopathy Endocrine : No Polyuria, No Polydipsia All other systems reviewed and are negative <Mal Gonzalez MD - Last Filed: 11/27/22 05:08> Yes all other systems are reviewed and are negative <Mal Gonzalez MD - Last Filed: 11/27/22 05:08> PMFSH Past Medical History Surgical History: Surgical History H/O adenoidectomy <Remedios Ferrari CNP - Last Filed: 11/26/22 20:43> Social History Social History: Social History Alcohol intake: never Smoked in Last 30 Days: No Use of substances other than those prescribed or required for medical reasons: No Advance Directives: No Advance Directives Information Provided: Yes <Remedios Ferrari CNP - Last Filed: 11/26/22 20:43> Physical Exam Vital Signs: Vital Signs: Last Vital Signs Temp 98.1 F 11/27/22 03:46 Pulse 50 11/27/22 03:46 Resp 16 11/27/22 03:46 BP 116/50 L 11/27/22 03:46 Pulse Ox 98 11/27/22 03:46 O2 Del Method 11/27/22 03:46 BMI result Body Mass Index 36.3 <Remedios Ferrari CNP - Last Filed: 11/26/22 20:43> Vital Signs: Last Vital Signs Temp 98.1 F 11/27/22 03:46 Pulse 50 11/27/22 03:46 Resp 16 11/27/22 03:46 BP 116/50 L 11/27/22 03:46 Pulse Ox 98 11/27/22 03:46 O2 Del Method 11/27/22 03:46 BMI result Body Mass Index 36.3 <Mal Gonzalez MD - Last Filed: 11/27/22 05:08> Appearance: Alert. Oriented X3. No acute distress. Eyes: PERRLA, No Nystagmus ENT: Pharynx normal. Oral Mucosa moist Neck: Normal inspection. Neck supple. CVS: Normal heart rate and rhythm. Pulses normal. Respiratory: No respiratory distress. Equal air entry bilateral, no wheezing/rales/rhonchi Abdomen: Soft and nontender. Bowel sounds are present, no mass palpable, no CVA tenderness Skin: Skin warm and dry. Normal skin color. Normal skin turgor. Extremities: No lower extremity edema. No calf tenderness Neuro: Oriented X 3. No motor deficit. No sensory deficit.No cerebellar signs , cranial nerves II-XII intact <Mal Gonzalez MD - Last Filed: 11/27/22 05:08> Course Course Course Narrative: This is an RME: Additional HPI, ROS, PE not included below will be deferred to primary provider. Patient is a 27-year-old male presents emergency department for evaluation of diffuse stomach cramping and diarrhea for 2 days. He was seen at urgent care earlier today, was advised to go to emergency department if his symptoms worsen. Over the past 2 hours he developed vomiting therefore he presented to the emergency department. He denies any known sick contacts, fevers, chills, dysuria, urinary frequency/urgency/hesitancy. Denies any history of prior abdominal surgery, or any past medical history. Plan: labs, viral testing, urinalysis, heavenly RAINES <Remedios Ferrari CNP - Last Filed: 11/26/22 20:43> Medications Administered Discontinued Medications Generic Name Dose Route Start Last Admin Trade Name Freq PRN Reason Stop Dose Admin Sodium Chloride 1,000 mls @ 999 mls/hr 11/26/22 23:13 11/27/22 00:34 Ns IV 11/27/22 00:13 999 mls/hr .Q1H1M ONE Administration Sodium Chloride 1,000 mls @ 999 mls/hr 11/27/22 02:18 11/27/22 02:42 Ns IV 11/27/22 03:18 999 mls/hr .Q1H1M ONE Administration Loperamide HCl 4 mg 11/26/22 23:13 11/27/22 00:33 Loperamide Hcl 2 Mg Capsule PO 11/26/22 23:14 4 mg ONCE ONE Administration Loperamide HCl 4 mg 11/27/22 02:18 11/27/22 02:41 Loperamide Hcl 2 Mg Capsule PO 11/27/22 02:19 4 mg ONCE ONE Administration Ondansetron HCl 4 mg 11/26/22 20:40 11/26/22 21:39 Ondansetron Odt 4 Mg Tab.Rapdis TRANSLINGU 11/26/22 20:41 4 mg ONCE ONE Administration Ondansetron HCl 4 mg 11/26/22 23:13 11/27/22 00:33 Ondansetron Hcl 4 Mg/2 Ml Vial IVPUSH 11/26/22 23:14 4 mg ONCE ONE Administration <Remedios Ferrari [employer]ANCE [employer]ICY ISSUE CLERK - Last Filed: 11/26/22 20:43> Medications Administered Discontinued Medications Generic Name Dose Route Start Last Admin Trade Name Brennonq PRN Reason Stop Dose Admin Sodium Chloride 1,000 mls @ 999 mls/hr 11/26/22 23:13 11/27/22 00:34 Ns IV 11/27/22 00:13 999 mls/hr .Q1H1M ONE Administration Sodium Chloride 1,000 mls @ 999 mls/hr 11/27/22 02:18 11/27/22 02:42 Ns IV 11/27/22 03:18 999 mls/hr .Q1H1M ONE Administration Loperamide HCl 4 mg 11/26/22 23:13 11/27/22 00:33 Loperamide Hcl 2 Mg Capsule PO 11/26/22 23:14 4 mg ONCE ONE Administration Loperamide HCl 4 mg 11/27/22 02:18 11/27/22 02:41 Loperamide Hcl 2 Mg Capsule PO 11/27/22 02:19 4 mg ONCE ONE Administration Ondansetron HCl 4 mg 11/26/22 20:40 11/26/22 21:39 Ondansetron Odt 4 Mg Tab.Rapdis TRANSLINGU 11/26/22 20:41 4 mg ONCE ONE Administration Ondansetron HCl 4 mg 11/26/22 23:13 11/27/22 00:33 Ondansetron Hcl 4 Mg/2 Ml Vial IVPUSH 11/26/22 23:14 4 mg ONCE ONE Administration <Mal Gonzalez MD - Last Filed: 11/27/22 05:08> Medical Decision Making Medical Decision Making [facility] Narrative: Patient likely with viral gastroenteritis possible E coli will give a short course of Levaquin for 3 days along with Imodium and Zofran stool culture was sent <Mal Gonzalez MD - Last Filed: 11/27/22 05:08> Lab Data [facility] Lab Attestation statement: I reviewed the patient's lab results. <Mal Gonzalez MD - Last Filed: 11/27/22 05:08> Result Diagrams: 11/26/22 21:11 11/26/22 21:11 <Remedios Ferrari CNP - Last Filed: 11/26/22 20:43> Labs: Lab Results 11/26/22 11/26/22 11/26/22 Range/Units 21:09 21:09 21:09 WBC (4.8-10.8) X10*3/uL RBC (4.60-5.80) X10*6/uL Hgb (14.0-18.0) g/dl Hct (42.0-52.0) % MCV (80.0-98.0) fL MCH (27.0-33.0) pg MCHC (31.0-36.0) g/dl RDW (11.0-16.0) % Plt Count (160-400) X10*3/uL MPV (9.4-12.4) fL Immature Gran % (Auto) (0.0-0.4) % Neut % (Auto) (45-73) % Lymph % (Auto) (20-40) % [place] % (Auto) (2-11) % Eos % (Auto) (0-4) % Baso % (Auto) (0-2) % Lymph # (Auto) (1.2-4.9) X10*3/uL [place] # (Auto) (0.1-1.2) X10*3/uL Eos # (Auto) (0.0-0.4) X10*3/uL Baso # (Auto) (0.0-0.2) X10*3/uL Abs Immat Gran (auto) (0.00-0.03) X10*3/uL Absolute Neuts (auto) (2.0-8.3) x10*3/uL Absolute Nucleated RBC (0.0-0.012) X10*3/uL Nucleated RBC % (auto) (0.0-0.2) /100WBC Sodium (135-145) mmol/L Potassium (3.3-5.1) mmol/L Chloride (96-108) mmol/L Carbon Dioxide (22-29) mmol/L Anion Gap (12-20) BUN (9-16) mg/dL Creatinine (0.5-1.4) mg/dL Estim Creat Clear Calc Estimated GFR Random Glucose (60-115) mg/dL Calcium (8.4-10.2) mg/dL Total Bilirubin (0.0-1.0) mg/dL AST (5-37) U/L ALT (0-40) U/L Alkaline Phosphatase (39-117) U/L Total Protein (6.5-8.0) g/dL Albumin (3.5-5.0) g/dL Lipase (8-78) U/L Urine Color Dark Yellow Urine Appearance Turbid Urine pH 5.5 (5.0-9.0) Ur Specific [place] >= 1.030 H (1.005-1.025) Urine Protein 30 (1+) H (Neg-Trace) mg/dL Urine Glucose (UA) Negative (Negative) mg/dL Urine Ketones Trace (Negative) mg/dL Urine Blood Small (1+) H (Negative) Urine Nitrite Negative (Negative) Ur Leukocyte Esterase Negative (Negative) Urine RBC 6-10 H (0-2) /HPF Urine WBC 0-5 (0-5) /HPF Ur Squamous Epith Cells 0-2 (0-2) /HPF Urine Bacteria None Seen (None Seen) Hyaline Casts 0-2 (0-2) /LPF COVID-19 ([facility]) Negative (Negative) COVID-19 Clin Com See Note Influenza Type A ([facility]) Negative (Negative) Influenza Type B ([facility]) Negative (Negative) Influenza A & B Note See Note 11/26/22 11/26/22 Range/Units 21:11 21:11 WBC 15.8 H (4.8-10.8) X10*3/uL RBC 5.81 H D (4.60-5.80) X10*6/uL Hgb 17.5 D (14.0-18.0) g/dl Hct 51.2 D (42.0-52.0) % MCV 88.1 (80.0-98.0) fL MCH 30.1 (27.0-33.0) pg MCHC 34.2 (31.0-36.0) g/dl RDW 12.4 (11.0-16.0) % Plt Count 279 (160-400) X10*3/uL MPV 10.0 (9.4-12.4) fL Immature Gran % (Auto) 0.3 (0.0-0.4) % Neut % (Auto) 85.5 H (45-73) % Lymph % (Auto) 5.6 L (20-40) % [place] % (Auto) 8.0 (2-11) % Eos % (Auto) 0.3 (0-4) % Baso % (Auto) 0.3 (0-2) % Lymph # (Auto) 0.9 L (1.2-4.9) X10*3/uL [place] # (Auto) 1.3 H (0.1-1.2) X10*3/uL Eos # (Auto) 0.0 (0.0-0.4) X10*3/uL Baso # (Auto) 0.0 (0.0-0.2) X10*3/uL Abs Immat Gran (auto) 0.05 H (0.00-0.03) X10*3/uL Absolute Neuts (auto) 13.5 H (2.0-8.3) x10*3/uL Absolute Nucleated RBC 0.000 (0.0-0.012) X10*3/uL Nucleated RBC % (auto) 0.0 (0.0-0.2) /100WBC Sodium 140 (135-145) mmol/L Potassium 4.5 (3.3-5.1) mmol/L Chloride 103 (96-108) mmol/L Carbon Dioxide 26 (22-29) mmol/L Anion Gap 16 (12-20) BUN 12 (9-16) mg/dL Creatinine 1.20 (0.5-1.4) mg/dL Estim Creat Clear Calc 135.2 Estimated GFR > 60 Random Glucose 111 (60-115) mg/dL Calcium 9.7 (8.4-10.2) mg/dL Total Bilirubin 1.3 H (0.0-1.0) mg/dL AST 35 (5-37) U/L ALT 41 H (0-40) U/L Alkaline Phosphatase 89 (39-117) U/L Total Protein 8.2 H (6.5-8.0) g/dL Albumin 5.0 (3.5-5.0) g/dL Lipase 13 (8-78) U/L Urine Color Urine Appearance Urine pH (5.0-9.0) Ur Specific [place] (1.005-1.025) Urine Protein (Neg-Trace) mg/dL Urine Glucose (UA) (Negative) mg/dL Urine Ketones (Negative) mg/dL Urine Blood (Negative) Urine Nitrite (Negative) Ur Leukocyte Esterase (Negative) Urine RBC (0-2) /HPF Urine WBC (0-5) /HPF Ur Squamous Epith Cells (0-2) /HPF Urine Bacteria (None Seen) Hyaline Casts (0-2) /LPF COVID-19 ([facility]) (Negative) COVID-19 Clin Com Influenza Type A ([facility]) (Negative) Influenza Type B ([facility]) (Negative) Influenza A & B Note <Remedios Ferrari CNP - Last Filed: 11/26/22 20:43> Lab Results 11/26/22 11/26/22 11/26/22 Range/Units 21:09 21:09 21:09 WBC (4.8-10.8) X10*3/uL RBC (4.60-5.80) X10*6/uL Hgb (14.0-18.0) g/dl Hct (42.0-52.0) % MCV (80.0-98.0) fL MCH (27.0-33.0) pg MCHC (31.0-36.0) g/dl RDW (11.0-16.0) % Plt Count (160-400) X10*3/uL MPV (9.4-12.4) fL Immature Gran % (Auto) (0.0-0.4) % Neut % (Auto) (45-73) % Lymph % (Auto) (20-40) % [place] % (Auto) (2-11) % Eos % (Auto) (0-4) % Baso % (Auto) (0-2) % Lymph # (Auto) (1.2-4.9) X10*3/uL [place] # (Auto) (0.1-1.2) X10*3/uL Eos # (Auto) (0.0-0.4) X10*3/uL Baso # (Auto) (0.0-0.2) X10*3/uL Abs Immat Gran (auto) (0.00-0.03) X10*3/uL Absolute Neuts (auto) (2.0-8.3) x10*3/uL Absolute Nucleated RBC (0.0-0.012) X10*3/uL Nucleated RBC % (auto) (0.0-0.2) /100WBC Sodium (135-145) mmol/L Potassium (3.3-5.1) mmol/L Chloride (96-108) mmol/L Carbon Dioxide (22-29) mmol/L Anion Gap (12-20) BUN (9-16) mg/dL Creatinine (0.5-1.4) mg/dL Estim Creat Clear Calc Estimated GFR Random Glucose (60-115) mg/dL Calcium (8.4-10.2) mg/dL Total Bilirubin (0.0-1.0) mg/dL AST (5-37) U/L ALT (0-40) U/L Alkaline Phosphatase (39-117) U/L Total Protein (6.5-8.0) g/dL Albumin (3.5-5.0) g/dL Lipase (8-78) U/L Urine Color Dark Yellow Urine Appearance Turbid Urine pH 5.5 (5.0-9.0) Ur Specific [place] >= 1.030 H (1.005-1.025) Urine Protein 30 (1+) H (Neg-Trace) mg/dL Urine Glucose (UA) Negative (Negative) mg/dL Urine Ketones Trace (Negative) mg/dL Urine Blood Small (1+) H (Negative) Urine Nitrite Negative (Negative) Ur Leukocyte Esterase Negative (Negative) Urine RBC 6-10 H (0-2) /HPF Urine WBC 0-5 (0-5) /HPF Ur Squamous Epith Cells 0-2 (0-2) /HPF Urine Bacteria None Seen (None Seen) Hyaline Casts 0-2 (0-2) /LPF COVID-19 ([facility]) Negative (Negative) COVID-19 Clin Com See Note Influenza Type A ([facility]) Negative (Negative) Influenza Type B ([facility]) Negative (Negative) Influenza A & B Note See Note 11/26/22 11/26/22 Range/Units 21:11 21:11 WBC 15.8 H (4.8-10.8) X10*3/uL RBC 5.81 H D (4.60-5.80) X10*6/uL Hgb 17.5 D (14.0-18.0) g/dl Hct 51.2 D (42.0-52.0) % MCV 88.1 (80.0-98.0) fL MCH 30.1 (27.0-33.0) pg MCHC 34.2 (31.0-36.0) g/dl RDW 12.4 (11.0-16.0) % Plt Count 279 (160-400) X10*3/uL MPV 10.0 (9.4-12.4) fL Immature Gran % (Auto) 0.3 (0.0-0.4) % Neut % (Auto) 85.5 H (45-73) % Lymph % (Auto) 5.6 L (20-40) % [place] % (Auto) 8.0 (2-11) % Eos % (Auto) 0.3 (0-4) % Baso % (Auto) 0.3 (0-2) % Lymph # (Auto) 0.9 L (1.2-4.9) X10*3/uL [place] # (Auto) 1.3 H (0.1-1.2) X10*3/uL Eos # (Auto) 0.0 (0.0-0.4) X10*3/uL Baso # (Auto) 0.0 (0.0-0.2) X10*3/uL Abs Immat Gran (auto) 0.05 H (0.00-0.03) X10*3/uL Absolute Neuts (auto) 13.5 H (2.0-8.3) x10*3/uL Absolute Nucleated RBC 0.000 (0.0-0.012) X10*3/uL Nucleated RBC % (auto) 0.0 (0.0-0.2) /100WBC Sodium 140 (135-145) mmol/L Potassium 4.5 (3.3-5.1) mmol/L Chloride 103 (96-108) mmol/L Carbon Dioxide 26 (22-29) mmol/L Anion Gap 16 (12-20) BUN 12 (9-16) mg/dL Creatinine 1.20 (0.5-1.4) mg/dL Estim Creat Clear Calc 135.2 Estimated GFR > 60 Random Glucose 111 (60-115) mg/dL Calcium 9.7 (8.4-10.2) mg/dL Total Bilirubin 1.3 H (0.0-1.0) mg/dL AST 35 (5-37) U/L ALT 41 H (0-40) U/L Alkaline Phosphatase 89 (39-117) U/L Total Protein 8.2 H (6.5-8.0) g/dL Albumin 5.0 (3.5-5.0) g/dL Lipase 13 (8-78) U/L Urine Color Urine Appearance Urine pH (5.0-9.0) Ur Specific [place] (1.005-1.025) Urine Protein (Neg-Trace) mg/dL Urine Glucose (UA) (Negative) mg/dL Urine Ketones (Negative) mg/dL Urine Blood (Negative) Urine Nitrite (Negative) Ur Leukocyte Esterase (Negative) Urine RBC (0-2) /HPF Urine WBC (0-5) /HPF Ur Squamous Epith Cells (0-2) /HPF Urine Bacteria (None Seen) Hyaline Casts (0-2) /LPF COVID-19 ([facility]) (Negative) COVID-19 Clin Com Influenza Type A ([facility]) (Negative) Influenza Type B ([facility]) (Negative) Influenza A & B Note <Mal Gonzalez MD - Last Filed: 11/27/22 05:08> Discharge Plan Discharge Clinical Impression: Gastroenteritis <Remedios Ferrari CNP - Last Filed: 11/26/22 20:43> Patient Disposition: Home, Self-Care <Remedios Ferrari CNP - Last Filed: 11/26/22 20:43> Instructions: Gastroenteritis (ED) <Remedios Ferrari CNP - Last Filed: 11/26/22 20:43> Additional Instructions: Drink plenty of fluids Medicine for nausea/vomiting as prescribed Imodium for severe diarrhea Follow with PCP if not better <Remedios Ferrari CNP - Last Filed: 11/26/22 20:43> Prescriptions: New ondansetron 4 mg tablet,disintegrating 4 mg PO Q6-8H PRN (Reason: nausea and vomiting) Qty: 10 0RF loperamide [Imodium A-D] 2 mg tablet 2 mg PO Q6H PRN (Reason: loose stool) Qty: 14 0RF <Remedios Ferrari CNP - Last Filed: 11/26/22 20:43>
[2022-11-26 21:17] LABS: MANUAL DIFF FLAG NO
[2022-11-26 21:23] LABS: Basophils Percent Auto 0.3 % (0-2); Eosinophils Percent Auto 0.3 % (0-4); Hematocrit 51.2 % (42.0-52.0); Hemoglobin 17.5 g/dl (14.0-18.0); Imm Gran Abs Auto 0.05 X10*3/uL (0.00-0.03); Imm Gran Pct Auto 0.3 % (0.0-0.4); Lymphocytes Absolute Auto 0.9 X10*3/uL (1.2-4.9); Lymphocytes Percent Auto 5.6 % (20-40); Mean Corpuscular HGB Conc 34.2 g/dl (31.0-36.0); Mean Corpuscular Hemoglobin 30.1 pg (27.0-33.0); Mean Corpuscular Volume 88.1 fL (80.0-98.0); Monocytes Absolute Auto 1.3 X10*3/uL (0.1-1.2); Neutrophils Absolute Auto 13.5 x10*3/uL (2.0-8.3); Neutrophils Percent Auto 85.5 % (45-73); Platelet Count 279 X10*3/uL (160-400); Red Blood Count 5.81 X10*6/uL (4.60-5.80); Red Cell Distribution Width 12.4 % (11.0-16.0); White Blood Count 15.8 X10*3/uL (4.8-10.8)
[2022-11-26 21:25] LABS: Appearance Urine Turbid; Color Urine Dark Yellow; Glucose Urine UA Negative (Negative); Leukocyte Esterase Urine Negative (Negative); Nitrite Urine Negative (Negative); PH 5.5 (5.0-9.0); Specific Gravity - Urine >= 1.030 (1.005-1.025); UMIC TRIGGER UACC YES; Urine Blood Small (1+) (Negative); Urine Ketones Trace mg/dL (Negative); Urine Protein 30 (1+) mg/dL (Neg-Trace)
[2022-11-26 21:28] LABS: Bacteria Urine None Seen (None Seen); Hyaline Casts Urine 0-2 /LPF (0-2); Squamous Epithelial Cell Urine 0-2 /HPF (0-2); WBC Urine 0-5 /HPF (0-5)
[2022-11-26 21:39] LABS: COVID-19 Test Negative (Negative); IDNOW Serial# BCCEAD1C
[2022-11-26] MEDS: Ondansetron ODT 4 MG TAB.RAPDIS TRANSLINGU (21:39)
[2022-11-26 21:45] LABS: Alanine Aminotransferase 41 U/L (0-40); Alkaline Phosphatase 89 U/L (39-117); Anion Gap 16 (12-20); Aspartate Amino Transferase 35 U/L (5-37); Bilirubin Total 1.3 mg/dL (0.0-1.0); Blood Urea Nitrogen 12 mg/dL (9-16); Calcium 9.7 mg/dL (8.4-10.2); Carbon Dioxide 26 mmol/L (22-29); Chloride 103 mmol/L (96-108); Creatinine Clr Calc Pharmacy 135.2; Estimated Glomerular Filt Rate > 60; Glucose Random 111 mg/dL (60-115); Lipase 13 U/L (8-78); Potassium 4.5 mmol/L (3.3-5.1); Sodium 140 mmol/L (135-145); Total Protein 8.2 g/dL (6.5-8.0)
[2022-11-26 21:56] LABS: IDNOW Serial# 9DB6401D; Influenza A Negative (Negative); Influenza B2 Negative (Negative)
[2022-11-27] MEDS: ondansetron HCL 4 MG/2 ML VIAL IVPUSH (00:33)
[2022-11-27] MEDS: Loperamide HCl 2 MG CAPSULE 4 MG PO ×2 (00:33→02:41)
[2022-11-27] MEDS: 0.9 % Sodium Chloride 1,000 ML 999 ML IV ×2 (00:34→02:42)
[2022-11-27 03:46] VITALS: BP 116/50; PULSE 50; RESP 16; TEMP 36.7; O2SAT 98
--- NOTE | 2022-11-27 03:49 | PC.NURSE ---
Assumed care VLADIMIR Salvador at 3am, pt a&o,no sob or chest pain, Monitoring Iv fluids, No n/v at this time. Will continue to monitor.
[2022-11-27] MEDS: levoFLOXacin 500 MG TABLET PO (05:40)
--- NOTE | 2022-11-27 05:48 | PC.NURSE ---
Reviewed discharge instructions with pt, pt verbalized understanding.
[2022-11-27 05:49] VITALS: BP 125/57; PULSE 84; O2SAT 98
[2022-11-27 11:22] LABS: Adenovirus F 40/41 Not Detected (Not Detect.); Astrovirus Not Detected (Not Detect.); Campylobacter Not Detected (Not Detect.); Cryptosporidium Not Detected (Not Detect.); Cyclospora cayetanensis Not Detected (Not Detect.); E. coli EAEC Not Detected (Not Detect.); E. coli EPEC Not Detected (Not Detect.); E. coli ETEC Not Detected (Not Detect.); E. coli O157 Not Detected (Not Detect.); E. coli STEC Not Detected (Not Detect.); Entamoeba histolytica Not Detected (Not Detect.); Giardia lamblia Not Detected (Not Detect.); Norovirus GI/GII Not Detected (Not Detect.); Plesiomonas shigelloides Not Detected (Not Detect.); Rotavirus A Not Detected (Not Detect.); Salmonella Not Detected (Not Detect.); Sapovirus Detected (Not Detect.); Shigella sp./EIEC Not Detected (Not Detect.); Vibrio Not Detected (Not Detect.); Vibrio Cholerae Not Detected (Not Detect.); Yersinia enterocolitica Not Detected (Not Detect.)
== END 2022-11-27 05:52 | disposition home or self-care (01) ==
PROVIDERS: Nurse Practitioner Family; Emergency Provider Internal Medicine
DX: K52.9 Noninfective gastroenteritis and colitis, unspecified (principal); Z20.822 Contact with and (suspected) exposure to COVID-19; Z20.828 Contact with and (suspected) exposure to other viral communicable diseases; Z79.899 Other long term (current) drug therapy
CPT/HCPCS: 80053; 81001; 83690; 85025; 87502; 87507; 87635; 96361; 96374; 99284; 99285; J2405

== ENCOUNTER 2022-12-02 07:01 | Emergency (ER) | payer OTHER, SELFPAY ==
[2022-12-02 07:27] VITALS: BP 128/83; PULSE 86; RESP 18; TEMP 36.6; O2SAT 97; BMI 38.7
[2022-12-02 07:45] VITALS: BP 142/79; PULSE 68; RESP 16; TEMP 36.6; O2SAT 99
[2022-12-02 08:37] LABS: MANUAL DIFF FLAG NO
[2022-12-02 08:39] LABS: Basophils Percent Auto 0.2 % (0-2); Eosinophils Percent Auto 0.3 % (0-4); Hematocrit 48.7 % (42.0-52.0); Hemoglobin 16.5 g/dl (14.0-18.0); Imm Gran Abs Auto 0.04 X10*3/uL (0.00-0.03); Imm Gran Pct Auto 0.3 % (0.0-0.4); Lymphocytes Absolute Auto 1.3 X10*3/uL (1.2-4.9); Lymphocytes Percent Auto 9.6 % (20-40); Mean Corpuscular HGB Conc 33.9 g/dl (31.0-36.0); Mean Corpuscular Hemoglobin 30.2 pg (27.0-33.0); Mean Platelet Volume 9.9 fL (9.4-12.4); Monocytes Absolute Auto 0.9 X10*3/uL (0.1-1.2); Monocytes Percent Auto 6.5 % (2-11); Neutrophils Absolute Auto 10.9 x10*3/uL (2.0-8.3); Neutrophils Percent Auto 83.1 % (45-73); Platelet Count 271 X10*3/uL (160-400); Red Blood Count 5.47 X10*6/uL (4.60-5.80); Red Cell Distribution Width 12.3 % (11.0-16.0); White Blood Count 13.1 X10*3/uL (4.8-10.8)
[2022-12-02 08:57] LABS: Alanine Aminotransferase 72 U/L (0-40); Albumin Level 4.5 g/dL (3.5-5.0); Alkaline Phosphatase 94 U/L (39-117); Anion Gap 15 (12-20); Aspartate Amino Transferase 47 U/L (5-37); Bilirubin Total 1.2 mg/dL (0.0-1.0); Blood Urea Nitrogen 10 mg/dL (9-16); Calcium 9.7 mg/dL (8.4-10.2); Carbon Dioxide 28 mmol/L (22-29); Chloride 104 mmol/L (96-108); Creatinine Clr Calc Pharmacy 166.1; Estimated Glomerular Filt Rate > 60; Glucose Random 108 mg/dL (60-115); Potassium 4.5 mmol/L (3.3-5.1); Sodium 142 mmol/L (135-145); Total Protein 7.5 g/dL (6.5-8.0)
[2022-12-02] MEDS: ondansetron HCL 4 MG/2 ML VIAL IVPUSH (10:28)
[2022-12-02] MEDS: 0.9 % Sodium Chloride 1,000 ML 999 ML IV (10:28)
--- NOTE | 2022-12-02 10:34 | ED_ITS ---
HPI - Nausea/Vomiting/Diarrhea General Chief complaint: Abdominal Pain Stated complaint: stomach pain, vomiting, diarrhea, sweats Time Seen by Provider: 12/02/22 07:52 Source: patient Mode of arrival: ambulatory History of Present Illness HPI Narrative: 27-year-old male who re-presented after being diagnosed with a viral gastroenteritis contracted from eating shellfish last week in being placed on antibiotics. Patient states that he has started to feel better over the weekend, attempted to eat some bland food and then woke up this morning with significant abdominal discomfort and repeated episodes of nausea, vomiting, diarrhea once again. He denies any fevers or chills. Related Data Previous Rx's Medication Instructions Recorded ciprofloxacin HCl 500 mg tablet 500 mg PO BID #6 tabs 11/27/22 (Cipro) loperamide 2 mg tablet (Imodium 2 mg PO Q6H PRN loose stool #14 11/27/22 A-D) tabs ondansetron 4 mg disintegrating 4 mg PO Q6-8H PRN nausea and 11/27/22 tablet vomiting #10 tabs Allergies Allergy/AdvReac Type Severity Reaction Status Date / Time amoxicillin Allergy Mild Rash Verified 11/26/22 20:36 red dye Allergy Mild Itching Verified 11/26/22 20:36 Review of Systems Review of Systems: Pertinent positives and negatives as stated in HPI PMFSH Past Medical History Source: nursing notes reviewed Surgical History H/O adenoidectomy Social History Social History Alcohol intake: never Smoked in Last 30 Days: No Use of substances other than those prescribed or required for medical reasons: No Advance Directives: No Advance Directives Information Provided: Yes Physical Exam Vital Signs: Vital Signs: Last Vital Signs Temp 97.8 F 12/02/22 07:45 Pulse 66 12/02/22 11:06 Resp 14 12/02/22 11:06 BP 127/66 12/02/22 11:06 Pulse Ox 98 12/02/22 11:06 O2 Del Method 12/02/22 11:06 BMI result Body Mass Index 38.7 VITAL SIGNS: Reviewed. GENERAL: Well developed, well nourished, in no acute distress. HEAD: Normocephalic/atraumatic EYES: PERRLA, EOMI LUNGS: Normal breath sounds. No adventitious sounds or accessory muscle use. SpO2<99> CARDIOVASCULAR: Regular rate and rhythm without noted murmurs ABDOMEN: Soft, non-tender, non-distended with bowel sounds. MUSCULOSKELETAL: No tenderness, deformities, or effusions noted on gross inspection. EXTREMITIES: No cyanosis, clubbing or edema. SKIN: Inspection of the skin reveals no rashes NEUROLOGIC: Alert and oriented x 4. Strength and sensation to light touch were grossly intact x 4. Medications Administered Discontinued Medications Generic Name Dose Route Start Last Admin Trade Name Freq PRN Reason Stop Dose Admin Sodium Chloride 1,000 mls @ 999 mls/hr 12/02/22 10:15 12/02/22 11:32 Ns IV 12/02/22 11:15 Infused .Q1H1M JENNIFER Infusion Ondansetron HCl 4 mg 12/02/22 10:11 12/02/22 10:28 Ondansetron Hcl 4 Mg/2 Ml Vial IVPUSH 12/02/22 10:12 4 mg ONCE ONE Administration Medical Decision Making Medical Decision Making MDM Narrative: 27-year-old male diagnosed with food poisoning, gastroenteritis, and likely improved secondary to being given Zofran and loperamide but obviously as soon as he stops taking it he has recurrence of the nausea, vomiting, diarrhea. Will give him IV fluids, Zofran and repeat GI panel but will further discuss with GI. I reviewed all investigations there is a noted down trending leukocytosis which is likely secondary to patient's nausea and vomiting as he is afebrile. Benign abdomen precluded any further imaging studies with CT scan. Patient was treated with IV fluids antiemetics and is currently tolerating p.o. intake without difficulty. Will send home with Zofran, I have also noted that patient has some hematuria and will provide outpatient referral with Gastroenterology. Differential Diagnosis Please see the discussion above Lab Data Please see the discussion above 12/02/22 08:30 12/02/22 08:30 Labs: Lab Results 12/02/22 12/02/22 12/02/22 Range/Units 08:30 08:30 10:39 WBC 13.1 H (4.8-10.8) X10*3/uL RBC 5.47 (4.60-5.80) X10*6/uL Hgb 16.5 (14.0-18.0) g/dl Hct 48.7 (42.0-52.0) % MCV 89.0 (80.0-98.0) fL MCH 30.2 (27.0-33.0) pg MCHC 33.9 (31.0-36.0) g/dl RDW 12.3 (11.0-16.0) % Plt Count 271 (160-400) X10*3/uL MPV 9.9 (9.4-12.4) fL Immature Gran % (Auto) 0.3 (0.0-0.4) % Neut % (Auto) 83.1 H (45-73) % Lymph % (Auto) 9.6 L (20-40) % Jones % (Auto) 6.5 (2-11) % Eos % (Auto) 0.3 (0-4) % Baso % (Auto) 0.2 (0-2) % Lymph # (Auto) 1.3 (1.2-4.9) X10*3/uL Jones # (Auto) 0.9 (0.1-1.2) X10*3/uL Eos # (Auto) 0.0 (0.0-0.4) X10*3/uL Baso # (Auto) 0.0 (0.0-0.2) X10*3/uL Abs Immat Gran (auto) 0.04 H (0.00-0.03) X10*3/uL Absolute Neuts (auto) 10.9 H (2.0-8.3) x10*3/uL Absolute Nucleated RBC 0.000 (0.0-0.012) X10*3/uL Nucleated RBC % (auto) 0.0 (0.0-0.2) /100WBC Sodium 142 (135-145) mmol/L Potassium 4.5 (3.3-5.1) mmol/L Chloride 104 (96-108) mmol/L Carbon Dioxide 28 (22-29) mmol/L Anion Gap 15 (12-20) BUN 10 (9-16) mg/dL Creatinine 1.01 (0.5-1.4) mg/dL Estim Creat Clear Calc 166.1 Estimated GFR > 60 Random Glucose 108 (60-115) mg/dL Calcium 9.7 (8.4-10.2) mg/dL Total Bilirubin 1.2 H (0.0-1.0) mg/dL AST 47 H (5-37) U/L ALT 72 H (0-40) U/L Alkaline Phosphatase 94 (39-117) U/L Total Protein 7.5 (6.5-8.0) g/dL Albumin 4.5 (3.5-5.0) g/dL Stl C. cayetanensis PCR (Not Detect.) Stool Rotavirus A PCR (Not Detect.) Stl Adenov F 40/41 PCR (Not Detect.) Stool Astrovirus (PCR) (Not Detect.) Stool Campylobacter PCR (Not Detect.) Stool Cryptosporidium PCR (Not Detect.) Stl Sh Tox Pr E STEC PCR (Not Detect.) Stool E coli O157 PCR (Not Detect.) Stl Enterotoxigenic E PCR (Not Detect.) Stool EPEC (PCR) (Not Detect.) Stool EAEC (PCR) (Not Detect.) Stl E. histolytica PCR (Not Detect.) Stool Giardia Lamblia PCR (Not Detect.) Stl P. shigelloides PCR (Not Detect.) Stool Salmonella PCR (Not Detect.) Stool Sapovirus (PCR) (Not Detect.) Stl Shigella/EIEC PCR (Not Detect.) St Y.enterocolitica PCR (Not Detect.) Stool Vibrio (PCR) (Not Detect.) Stl Vibrio cholerae PCR (Not Detect.) Stl Norovirus GI/GII PCR (Not Detect.) C. difficile Tox B Gene SEE NOTE (Negative) 12/02/22 Range/Units 10:39 WBC (4.8-10.8) X10*3/uL RBC (4.60-5.80) X10*6/uL Hgb (14.0-18.0) g/dl Hct (42.0-52.0) % MCV (80.0-98.0) fL MCH (27.0-33.0) pg MCHC (31.0-36.0) g/dl RDW (11.0-16.0) % Plt Count (160-400) X10*3/uL MPV (9.4-12.4) fL Immature Gran % (Auto) (0.0-0.4) % Neut % (Auto) (45-73) % Lymph % (Auto) (20-40) % Jones % (Auto) (2-11) % Eos % (Auto) (0-4) % Baso % (Auto) (0-2) % Lymph # (Auto) (1.2-4.9) X10*3/uL Jones # (Auto) (0.1-1.2) X10*3/uL Eos # (Auto) (0.0-0.4) X10*3/uL Baso # (Auto) (0.0-0.2) X10*3/uL Abs Immat Gran (auto) (0.00-0.03) X10*3/uL Absolute Neuts (auto) (2.0-8.3) x10*3/uL Absolute Nucleated RBC (0.0-0.012) X10*3/uL Nucleated RBC % (auto) (0.0-0.2) /100WBC Sodium (135-145) mmol/L Potassium (3.3-5.1) mmol/L Chloride (96-108) mmol/L Carbon Dioxide (22-29) mmol/L Anion Gap (12-20) BUN (9-16) mg/dL Creatinine (0.5-1.4) mg/dL Estim Creat Clear Calc Estimated GFR Random Glucose (60-115) mg/dL Calcium (8.4-10.2) mg/dL Total Bilirubin (0.0-1.0) mg/dL AST (5-37) U/L ALT (0-40) U/L Alkaline Phosphatase (39-117) U/L Total Protein (6.5-8.0) g/dL Albumin (3.5-5.0) g/dL Stl C. cayetanensis PCR Not Detected (Not Detect.) Stool Rotavirus A PCR Not Detected (Not Detect.) Stl Adenov F 40/41 PCR Not Detected (Not Detect.) Stool Astrovirus (PCR) Not Detected (Not Detect.) Stool Campylobacter PCR Not Detected (Not Detect.) Stool Cryptosporidium PCR Not Detected (Not Detect.) Stl Sh Tox Pr E STEC PCR Not Detected (Not Detect.) Stool E coli O157 PCR Not applicable (Not Detect.) Stl Enterotoxigenic E PCR Not Detected (Not Detect.) Stool EPEC (PCR) Not Detected (Not Detect.) Stool EAEC (PCR) Not Detected (Not Detect.) Stl E. histolytica PCR Not Detected (Not Detect.) Stool Giardia Lamblia PCR Not Detected (Not Detect.) Stl P. shigelloides PCR Not Detected (Not Detect.) Stool Salmonella PCR Not Detected (Not Detect.) Stool Sapovirus (PCR) Detected A (Not Detect.) Stl Shigella/EIEC PCR Not Detected (Not Detect.) St Y.enterocolitica PCR Not Detected (Not Detect.) Stool Vibrio (PCR) Not Detected (Not Detect.) Stl Vibrio cholerae PCR Not Detected (Not Detect.) Stl Norovirus GI/GII PCR Not Detected (Not Detect.) C. difficile Tox B Gene (Negative) External Record Review External record reviewed: Outpatient record and Prior outpatient labs Discharge Plan Discharge Clinical Impression: Gastroenteritis due to sapovirus, Elevated liver enzymes, Hematuria Patient Disposition: Home, Self-Care Instructions: Hematuria (ED), Dehydration (ED), Gastroenteritis (ED), Nutrition Tips for Relief of Diarrhea (ED) Additional Instructions: 1. Recommend that you take Zofran every 6-8 hours for the next 24 hours and continue to rehydrate with Gatorade and water. 2. I have provided a GI referral, Gastroenterology, and you should call the office today to set up an appointment for re-evaluation further outpatient management. 3. Please review the information regarding dietary changes to help firm up your stools. 4. Follow-up with your primary care provider in the next 1-2 days for re-chris luation. Return to the ER for any worsening or persistence of your nausea, vomiting, diarrhea after 48 hours please return to the ER. Prescriptions: No Action ondansetron 4 mg tablet,disintegrating 4 mg PO Q6-8H PRN (Reason: nausea and vomiting) Qty: 10 0RF loperamide [Imodium A-D] 2 mg tablet 2 mg PO Q6H PRN (Reason: loose stool) Qty: 14 0RF ciprofloxacin HCl [Cipro] 500 mg tablet 500 mg PO BID Qty: 6 0RF Referrals: Robb Hollins [Physician] - (Persistent gastroenteritis, Sapovirus, returned to ER for 2nd time and now noted to have elevated LFT and some mild hematuria. Rehydrated here, sent home on Zofran, would appreciate lamont. Thank you)
[2022-12-02 11:06] VITALS: BP 127/66; PULSE 66; RESP 14; O2SAT 98
[2022-12-02 12:30] LABS: Campylobacter Not Detected (Not Detect.); E. coli EAEC Not Detected (Not Detect.); E. coli EPEC Not Detected (Not Detect.); E. coli ETEC Not Detected (Not Detect.); E. coli STEC Not Detected (Not Detect.); Plesiomonas shigelloides Not Detected (Not Detect.); Salmonella Not Detected (Not Detect.); Shigella sp./EIEC Not Detected (Not Detect.); Vibrio Not Detected (Not Detect.); Vibrio Cholerae Not Detected (Not Detect.); Yersinia enterocolitica Not Detected (Not Detect.)
[2022-12-02 12:31] LABS: Adenovirus F 40/41 Not Detected (Not Detect.); Astrovirus Not Detected (Not Detect.); Cryptosporidium Not Detected (Not Detect.); Cyclospora cayetanensis Not Detected (Not Detect.); Entamoeba histolytica Not Detected (Not Detect.); Giardia lamblia Not Detected (Not Detect.); Norovirus GI/GII Not Detected (Not Detect.); Rotavirus A Not Detected (Not Detect.); Sapovirus Detected (Not Detect.)
== END 2022-12-02 14:28 | disposition home or self-care (01) ==
PROVIDERS: Emergency Provider Student in an Organized Health Care Education/Training Program
DX: A08.4 Viral intestinal infection, unspecified (principal); R79.89 Other specified abnormal findings of blood chemistry; R31.9 Hematuria, unspecified; Z20.822 Contact with and (suspected) exposure to COVID-19; Z20.828 Contact with and (suspected) exposure to other viral communicable diseases; Z79.899 Other long term (current) drug therapy
CPT/HCPCS: 36415; 80053; 85025; 87493; 87507; 96361; 96374; 99284; J2405

== ENCOUNTER 2024-09-16 19:24 | Emergency (ER) | payer OTHER, SELFPAY ==
[2024-09-16 19:54] VITALS: BP 139/81; PULSE 72; RESP 18; TEMP 36.6; O2SAT 96; BMI 36.8
--- NOTE | 2024-09-16 19:58 | ED_ITS ---
HPI - General Adult General Stated complaint: dehydrated, diarrhea Related Data Previous Rx's ?Medication ?Instructions ?Recorded ciprofloxacin HCl 500 mg tablet 500 mg PO BID #6 tabs 11/27/22 (Cipro) loperamide 2 mg tablet (Imodium 2 mg PO Q6H PRN loose stool #14 11/27/22 A-D) tabs ondansetron 4 mg disintegrating 4 mg PO Q6-8H PRN nausea and 11/27/22 tablet vomiting #10 tabs Allergies Allergy/AdvReac Type Severity Reaction Status Date / Time amoxicillin Allergy Mild Rash Verified 09/16/24 19:56 red dye Allergy Mild Itching Verified 09/16/24 19:56 PMFSH Past Medical History Surgical History H/O adenoidectomy Social History Social History Alcohol intake: never Course Course Course Narrative: RME, this is a rapid medical exam performed by Pradeep Granger please refer to primary provider for complete H&P- 28-year-old male presents for evaluation of diarrhea that started a few days ago and worsened today. He reports having loose bowel movements about every 20 minutes today. Denies any recent antibiotic use or recent travel. Plan for labs and viral swabs Discharge Plan Discharge Prescriptions: No Action ondansetron 4 mg tablet,disintegrating 4 mg PO Q6-8H PRN (Reason: nausea and vomiting) Qty: 10 0RF loperamide [Imodium A-D] 2 mg tablet 2 mg PO Q6H PRN (Reason: loose stool) Qty: 14 0RF ciprofloxacin HCl [Cipro] 500 mg tablet 500 mg PO BID Qty: 6 0RF Print Language: Swedish
[2024-09-16 20:39] LABS: MANUAL DIFF FLAG NO
[2024-09-16 20:44] LABS: Basophils Percent Auto 0.5 % (0-2); Eosinophils Absolute Auto 0.1 X10*3/uL (0.0-0.4); Eosinophils Percent Auto 0.8 % (0-4); Hemoglobin 17.6 g/dl (14.0-18.0); Imm Gran Abs Auto 0.04 X10*3/uL (0.00-0.03); Imm Gran Pct Auto 0.6 % (0.0-0.4); Lymphocytes Absolute Auto 1.4 X10*3/uL (1.2-4.9); Lymphocytes Percent Auto 22.4 % (20-40); Mean Corpuscular HGB Conc 34.5 g/dl (31.0-36.0); Mean Corpuscular Hemoglobin 30.5 pg (27.0-33.0); Mean Corpuscular Volume 88.4 fL (80.0-98.0); Monocytes Absolute Auto 0.9 X10*3/uL (0.1-1.2); Monocytes Percent Auto 14.6 % (2-11); Neutrophils Absolute Auto 3.8 x10*3/uL (2.0-8.3); Neutrophils Percent Auto 61.1 % (45-73); Platelet Count 280 X10*3/uL (160-400); Red Blood Count 5.77 X10*6/uL (4.60-5.80); Red Cell Distribution Width 12.1 % (11.0-16.0); White Blood Count 6.2 X10*3/uL (4.8-10.8)
[2024-09-16 20:58] LABS: Alanine Aminotransferase 52 U/L (0-40); Albumin Level 4.7 g/dL (3.5-5.0); Alkaline Phosphatase 83 U/L (39-117); Anion Gap 10 (12-20); Aspartate Amino Transferase 52 U/L (5-37); Bilirubin Total 0.5 mg/dL (0.0-1.0); Blood Urea Nitrogen 10 mg/dL (9-16); Calcium 9.4 mg/dL (8.4-10.2); Carbon Dioxide 30 mmol/L (22-29); Chloride 101 mmol/L (96-108); Creatinine Clr Calc Pharmacy 168.1; Estimated Glomerular Filt Rate > 60; Glucose Random 101 mg/dL (60-115); Lipase 17 U/L (8-78); Potassium 3.4 mmol/L (3.3-5.1); Sodium 138 mmol/L (135-145); Total Protein 8.3 g/dL (6.5-8.0)
[2024-09-16 21:20] LABS: Influenza A PCR NEGATIVE (Negative); Influenza B PCR NEGATIVE (Negative); Resp Syncy Virus RNA Qual PCR NEGATIVE (Negative); SARS COV2 PCR INHOUSE NEGATIVE (Negative)
--- OUTSIDE RECORDS SUMMARY | 2024-09-17 01:08 | XMS_ITS | Data Portability ---
Author Organization [facility] Address [address] [place] [address] Assessment No assessment recorded. Plan of Treatment Reminders Order Date Submit Date Provider Last Modified By Organization Details Last Modified Time Details Appointments None recorded. Lab rapid flu (A+B) 2022 023 [email or web address] [id number], [address] [place], [address], 13:20:11 Referral None recorded. Procedures None recorded. Surgeries None recorded. Imaging None recorded. Medication Orders loratadine 10 mg tablet 2022 023 [facility] #[id number], [address], [address], 3 13:20:14 doxycycline hyclate 100 mg tablet 2022 023 [id number] [address], [address], 3 13:20:14 Patient TargetsNo targets recorded. Patient Instructions Encounter Date Encounter Id Patient Instructions Last Modified By Organization Details Last Modified Time 01/04/2023 [id number] Acute Sinusitis: Care Instructions Not available 01/04/2023 13:20:11 Based on your presentation and exam, you are being diagnosed with Sinusitis. Rhinosinusitis is most often viral and will resolve on its own in 7-10 days. Symptoms that last longer than 2 weeks an antibiotic could be considered. Based on your presentation, and antibiotic was written. The following are my recommendations to help your symptoms and to allow your condition to improve: 1. Drink plenty of fluids while you are ill- stay hydrated 2. Rest - don't overexert yourself - this includes sports and any gym routines. 3. I suggest taking an antihistamine - like Claritin, Zyrtec, or Benedryl 4. If you take OTC cold medication I would recommend [place]-Selzer Cold/Cough. 5. Mucinex with a lot of water is ok - if you are having trouble clearing your nasal passages of mucous. However, if you start to cough then discontinue - this can increase coughing due to a watery post nasal drip. 6. Saline Nasal [place] is recommended. Since an antibiotic was prescribed you need to complete the full course - this is important so you don't develop any antibiotic resistance to future infections. I advise taking a Probiotic like Florastor since you are on an antibiotic - this will help you re-colonize your body with the good bacteria. Typically, it will take 6 months for you to restore your normal body justin after an antibiotic. Don't hesitate to be seen again if you develop: 1. Fever > 100.5 2. Worsening Headache 3. Stiff Neck 4. Worsening Cough or Shortness of breath 5. Visual Changes. The antibiotic should start to work in 4-5 days. You may not notice immediate response. Thank you for using [facility] today, please feel free to contact our office if you have any questions or concerns. [email or web address] Not available 01/04/2023 13:20:01 Reason for Referral None Reported. Results Created Date Observation Date Name Description Value Unit Range Abnormal Flag Note LastModifiedBy Organization Detail LastModifiedTime 01/05/2001/04/2023 rapid flu (A+B) Unknown Analyte Normal = Negati ve Not Available [facility] [address] [place], [address], 01/04/2023 12:26:23 01/05/20 23 01/04/2023 rapid flu (A+B) Unknown Analyte negati ve Not Available [facility] [address] [place] [address], [address], 01/04/2023 12:26:23 01/05/20 23 01/04/2023 rapid flu (A+B) Unknown Analyte Normal = Negati ve Not Available [id number] [address] [place], [address], 01/04/2023 12:26:23 01/05/20 23 01/04/2023 rapid flu (A+B) Unknown Analyte negati ve Not Available [id number], [address], 01/04/2023 12:26:23 Result Notes None recorded. Problems No Known Problems Procedures Surgical History Date Name Laterality Status Provider Name and Address Organization Details Recorded Time adenomyomectomy completed ARTEMIO Jean Baptiste PA - [facility] 01/04/2023 12:26:14 Imaging Results None recorded. Procedure Notes None recorded. Medical Equipment None Reported. Allergies Allergen ID Allergen Name Allergen Category Reaction Reaction Severity Criticality Documentation Date Start Date Code Code System Note Provider Name and Address Organization Details Recorded Time [id number] amoxicill in medicatio n hives Not available Not available 01/04/2023 723 RxNorm ARTEMIO urbano PA - [facility] 12:25:16 Medications Name Sig Start Date Stop Date Status Note LastModified by Organization Details LastModified Time loperamide 2 mg capsule TAKE 1 CAPSULE ORALLY EVERY 6 HOURS NEEDED FOR LOOSE STOOL 01/04 completed Not Available Not Available Not Available ciprofloxac in 500 mg tablet TAKE 1 TABLET BY MOUTH TWICE A DAY 01/04 completed Not Available Not Available Not Available benzonatate 100 mg capsule TAKE 1 CAPSULE BY MOUTH THREE TIMES A DAY NEEDED FOR COUGH active Not Available Not Available No t Available oseltamivir 75 mg capsule TAKE 1 CAP BY MOUTH TWICE A DAY FOR 5 DAYS 01/04 completed Not Available Not Available Not Available albuterol sulfate HFA 90 mcg/actuati on aerosol inhaler TAKE 2 PUFFS INHALED EVERY 4 TO 6 HOURS NEEDED FOR SHORTNESS OF BREATH active Not Available Not Available No t Available ondansetron 4 mg disintegrat ing tablet TAKE 1 TAB ORALLY EVERY 6 TO 8 HOURS NEEDED FOR NAUSEA AND VOMITING 01/04 completed Not Available Not Available Not Available doxycycline hyclate 100 mg tablet TAKE 1 TABLET BY MOUTH TWICE A DAY FOR 10 DAYS active Not Available Not Available No t Available loratadine 10 mg tablet TAKE 1 TABLET BY MOUTH EVERY DAY FOR 14 DAYS active Not Available Not Available No t Available Vitals Date Recorded Body height Body mass index (BMI) Body weight Body temperature Respiratory rate Heart rate Oxygen saturation Oxygen saturation in Arterial blood by Pulse oximetry Systolic blood pressure Diastolic blood pressure Provider Name and Address Organization Details Last Updated DateTime 193.04 cm 35.3 kg/m2 205581. 79 g 97.7 [degF] 18 /min 74 /min 98 % 98 % 125 mm[Hg] 78 mm[Hg] ARTEMIO Jean Baptiste PA - [facility] 12:27:45 Social History Question Answer Notes LastModified by Organizat ion Details LastModified Time Tobacco Smoking Status Never Smoker ARTEMIO urbano PA - [facility] 01/04/2023 12:25:51 What Is Your Level Of Alcohol Consumption? None Information not available 01/04/2023 What Is Your Water Source? [facility] Information not available 01/04/2023 What Is Your Heat Source? Other Information not available 01/04/2023 Have You Had Direct Contact, Or Contact During Intimacy, With Monkeypox Rash, Scabs, Or Body Fluids From A Person With Monkeypox? No Information not available 01/04/2023 Do You Use Any Illicit Or Recreational Drugs? No Information not available 01/04/2023 Have You Recently Traveled Abroad? No Information not available 01/04/2023 Do You Or Have You Ever Used Any Other Forms Of Tobacco Or Nicotine? No Information not available 01/04/2023 Sex: Unknown Functional Status None recorded. Mental Status None recorded. Family History Relationship Description Onset Age of this Age Resolved Age Notes LastModified by Organization Details LastModified Time Father No current problems or disability Not available 12:25:43 Mother No current problems or disability Not available 12:25:43 Medical History No medical history recorded. Past Encounters Encounter ID Performer Location Encounter Start Date Encounter Closed Date Diagnosis/Indication Diagnosis SNOMED-CT Code Diagnosis ICD10 Code [id number] [address] [facility] [place] [address] 10/21/2020 14:26:11 10/21/2020 17:08:07 [id number] CATE HOFFMANN [address] [place] [address] 01/04/2023 12:12:03 01/04/2023 13:21:44 Acute sinusitis 44946732 J01.90 Health Concerns Section Related Observation LastModified by Organization Detai ls LastModified Time None Recorded Concern Status LastModified by Organization Details LastModified Time None Recorded Advance Directives Directive None Recorded Payers Encounter Date Sequence Insurance Name Policy Number Policy Cortes Covered Member ID Cortes Member ID Guarantor Name 10/21/2020 1 [facility] [id number] Sony Chan [id number] 1 Sony Chan 01/04/2023 1 [facility] [id number] Sony Chan [id number] Sony Chan Notes Date Note Type Note Provider Name and Address Organization Details Recorded Time 3 text/html CoughReported bypatient.source of patient informationInformation obtained from patient; Patient arrived at Urgent Care ambulatory Quality:dry Severity:mild Duration:5 days; The patient reports has had congestion but 5 days ago lost voice and started coughing. Worse in the AM. The patient denies sore throat. He states he got concerned today because the mucous is yellow. Denies asthma or SOB. Timing:worsening Context:non-smoker Associated Symptoms:no fever; no chills; no chest pain; no heartburn; no nausea; no vomiting; no wheezing;post nasal drip CATE HOFFMANN [facility] [place], [address], PA - [facility] 01/04/2023 13:22:37
== END 2024-09-17 01:20 | disposition left against medical advice (07) ==
PROVIDERS: Physician Assistant; Emergency Provider Emergency Medicine
DX: E86.0 Dehydration (principal); R19.7 Diarrhea, unspecified; Z03.818 Encounter for observation for suspected exposure to other biological agents ruled out
CPT/HCPCS: 0241U; 80053; 83690; 85025; 99281